=== PATIENT | female | born 1960 | race Caucasian/White ===

== ENCOUNTER 2022-07-07 09:46 | Emergency (ER) | payer BC, OTHER ==
--- OUTSIDE RECORDS SUMMARY | 2022-07-07 09:49 | XMS REPORT | Continuity of Care Document ---
:1960 Author Organization [facility] t Address [address] [place] [address]. [address] [place] [address] Care Team Providers Name Role Phone Simon Mcadams Admitting Clinician Unavailable Payers Payer Name Policy Type Policy Number Effective Date Expiration Date S ource Problems This patient has no known problems. Allergies, Adverse Reactions, Alerts Allergy Allergy Status Severity Reaction(s) Onset Inactive Treating Comm ents Source Name Type Date Date Clinician No Known DA Active U [facility] Allergie 04-27 [facility] 00:00: [address] No Known DA Active U 0 [facility] Allergie 04-27 [facility] 00:00: [address] Medications This patient has no known medications. Procedures This patient has no known procedures. Encounters Start End Encounter Admission Attending Care Care Encounter Source Date/Time Date/Time Type Type Clinicians Facility Department ID 2020-07-30 Inpatient [facility] ER [id number] [facility] 10:32:[address] [place] [address] Results Test Description Test Time Test Comments Results Result Comments Source BASIC METABOLIC PANEL 2020-07-31 06:03:00 Test Item Value Reference Range Interpretation Comme nts SODIUM (test code = NA) 142 MMOL/L 133-145 N POTASSIUM (test code = K) 4.1 MMOL/L 3.6-5.2 N CHLORIDE (test code = CL) 106 MMOL/L 100-108 N CARBON DIOXIDE (test code = 30 MMOL/L 22-32 N CO2) GLUCOSE (test code = GLU) 86 MG/DL 65-99 N Re sults of this assay method may be falsely depressed orelevated if p atient is taking sulfasalazine. BLOOD UREA NITROGEN (test code 11 MG/DL 6-20 N = BUN) GLOMERULAR FILTRATION RATE 67 45-104 N R eporting units: (test code = GFR) mL/min/1.7 3m\S\2 (Modified MDRD Formula) CREATININE (test code = CREAT) 0.86 MG/DL 0.60-1.00 N CALCIUM (test code = CA) 8.3 MG/DL 8.7-10.5 L [id number] 06:03:00 Test Item Value Reference Range Interpretation Comments MAGNESIUM (test code = MAG) 2.2 MG/DL 1.8-2.4 N CBC W/AUTO [id number] 05:53:00 Test Item Value Reference Range Interpretation Comments WHITE BLOOD CELL (test code = 5.65 x10 3/uL 4.80-10.80 N WBC) RED BLOOD CELL (test code = 3.92 x10 6/uL 4.2-5.4 L RBC) HEMOGLOBIN (test code = HGB) 11.6 G/DL 12.0-16.0 L HEMATOCRIT (test code = HCT) 35.5 % 37-47 L MEAN CELL VOLUME (test code = 90.6 FL 81-99 N MCV) MEAN CELL HGB (test code = MCH) 29.6 PG 27-31 N MEAN CELL HGB CONCENTRATION 32.7 G/DL 33-37 L (test code = MCHC) RED CELL DISTRIBUTION WIDTH 15.6 % 11.5-14.5 H (test code = RDW) PLATELET COUNT (test code = 173 x10 3/uL 150-450 N PLT) MEAN PLATELET VOLUME (test code 11.0 FL 7.4-10.4 H = MPV) NEUTROPHIL % (test code = NT%) 57.1 % 42-86 N IMMATURE GRANULOCYTE % (test 0.2 % 0.0-2.0 N code = IG%) LYMPHOCYTE % (test code = LY%) 32.0 % 24-44 N MONOCYTE % (test code = MO%) 7.4 % 0.0-4.0 H EOSINOPHIL % (test code = EO%) 2.8 % 0.0-2.7 H BASOPHIL % (test code = BA%) 0.5 % 0.0-0.5 N NUCLEATED RBC % (test code = 0.0 % 0.0-0.0 N NRBC%) NEUTROPHIL # (test code = NT#) 3.22 x10 3/uL 1.8-7.7 N IMMATURE GRANULOCYTE # (test 0.01 x10 3/uL 0.00-0.03 N code = IG#) LYMPHOCYTE # (test code = LY#) 1.81 x10 3/uL 1.0-4.8 N MONOCYTE # (test code = MO#) 0.42 x10 3/uL 0.0-0.8 N EOSINOPHIL # (test code = EO#) 0.16 x10 3/uL 0.0-0.5 N BASOPHIL # (test code = BA#) 0.03 x10 3/uL 0.0-0.2 N NUCLEATED RBC # (test code = 0.0 X10 3/uL 0.0-0.2 N NRBC#) LACTIC [id number] 15:26:00 Test Item Value Reference Range Interpretation Comments LACTIC ACID (test code = LACT) 1.7 MMOL/L 0.5-2.2 N LACTIC [id number] 12:18:00 Test Item Value Reference Range Interpretation Comments LACTIC ACID (test code = LACT) 3.7 MMOL/L 0.5-2.2 H UA RFLX MICROSCOPIC [id number] 11:49:00 Test Item Value Reference Range Interpretation Comments UA COLOR (test code = COLU) Yellow YELLOW UA APPEARANCE (test code = CLEAR CLEAR APPU) UA GLUCOSE DIPSTICK (test NORMAL mg/dL NEGATIVE code = DGLUU) UA BILIRUBIN DIPSTICK (test NEGATIVE NEGATIVE code = BILU) UA KETONE DIPSTICK (test NEGATIVE mg/dL NEGATIVE code = KETU) UA SPECIFIC GRAVITY (test 1.013 1.001-1.035 N code = SGU) UA BLOOD DIPSTICK (test code NEGATIVE NEGATIVE = RAFAEL) UA PH DIPSTICK (test code = 6.0 5.5-7.0 N GUICHO) UA PROTEIN DIPSTICK (test 20 mg/dL NEGATIVE code = PROU) UA UROBILINOGEN DIPSTICK NORMAL mg/dL NORMAL (test code = URO) UA NITRITE DIPSTICK (test NEGATIVE NEGATIVE code = JUDY) UA LEUKOCYTE ESTERASE NEGATIVE NEGATIVE DIPSTICK (test code = LEUU) UA COMMENT (test code = VOLUME 10-12 ML COMU) URINE SPECIMEN DESCRIPTION Clean Catch (test code = UASPEC) UA WBC (test code = WBCU) < 10 #/HPF 0-10 UA SQUAMOUS CELLS (test code 41 - 60 #/LPF <100 A = SQU) UA CULTURE NEEDED? (test Criteria not met code = UACULT) Indication for culture: RiskForSepsis-no oth srcURINE SOURCE: Clean CatchUA [id number] 11:49:00 Test Item Value Reference Range Interpretation Comments UA RBC (test code = RBCU) 0-2 #/HPF NONE SEEN UA HYALINE CAST (test code = 21-25 #/lpf HYALU) UA MUCUS (test code = MUCU) 2+ #/lpf NONE SEEN Indication for culture: RiskForSepsis-no oth srcURINE SOURCE: Clean CatchUA RFLX MICROSCOPIC [id number] 11:46:00 Test Item Value Reference Range Interpretation Comments UA COLOR (test code = COLU) Yellow YELLOW UA APPEARANCE (test code = CLEAR CLEAR APPU) UA GLUCOSE DIPSTICK (test NORMAL mg/dL NEGATIVE code = DGLUU) UA BILIRUBIN DIPSTICK (test NEGATIVE NEGATIVE code = BILU) UA KETONE DIPSTICK (test code NEGATIVE mg/dL NEGATIVE = KETU) UA SPECIFIC GRAVITY (test 1.013 1.001-1.035 N code = SGU) UA BLOOD DIPSTICK (test code NEGATIVE NEGATIVE = RAFAEL) UA PH DIPSTICK (test code = 6.0 5.5-7.0 N GUICHO) UA PROTEIN DIPSTICK (test 20 mg/dL NEGATIVE code = PROU) UA UROBILINOGEN DIPSTICK NORMAL mg/dL NORMAL (test code = URO) UA NITRITE DIPSTICK (test NEGATIVE NEGATIVE code = JUDY) UA LEUKOCYTE ESTERASE NEGATIVE NEGATIVE DIPSTICK (test code = LEUU) UA COMMENT (test code = COMU) VOLUME 10-12 ML URINE SPECIMEN DESCRIPTION Clean Catch (test code = UASPEC) UA WBC (test code = WBCU) #/hpf <10 UA SQUAMOUS CELLS (test code #/lpf <100 = SQU) UA CULTURE NEEDED? (test code = UACULT) Indication for culture: RiskForSepsis-no oth srcURINE SOURCE: Clean CatchUA [id number] 11:46:00 Test Item Value Reference Range Interpretation Comments UA RBC (test code = RBCU) #/HPF NONE SEEN Indication for culture: RiskForSepsis-no oth srcURINE SOURCE: Clean CatchUA RFLX MICROSCOPIC [id number] 11:46:00 Test Item Value Reference Range Interpretation Comments UA COLOR (test code = COLU) Yellow YELLOW UA APPEARANCE (test code = CLEAR CLEAR APPU) UA GLUCOSE DIPSTICK (test NORMAL mg/dL NEGATIVE code = DGLUU) UA BILIRUBIN DIPSTICK (test NEGATIVE NEGATIVE code = BILU) UA KETONE DIPSTICK (test code NEGATIVE mg/dL NEGATIVE = KETU) UA SPECIFIC GRAVITY (test 1.013 1.001-1.035 N code = SGU) UA BLOOD DIPSTICK (test code NEGATIVE NEGATIVE = RAFAEL) UA PH DIPSTICK (test code = 6.0 5.5-7.0 N GUICHO) UA PROTEIN DIPSTICK (test 20 mg/dL NEGATIVE code = PROU) UA UROBILINOGEN DIPSTICK NORMAL mg/dL NORMAL (test code = URO) UA NITRITE DIPSTICK (test NEGATIVE NEGATIVE code = JUDY) UA LEUKOCYTE ESTERASE NEGATIVE NEGATIVE DIPSTICK (test code = LEUU) UA COMMENT (test code = COMU) VOLUME 10-12 ML URINE SPECIMEN DESCRIPTION Clean Catch (test code = UASPEC) UA WBC (test code = WBCU) #/hpf <10 UA SQUAMOUS CELLS (test code #/lpf <100 = SQU) UA CULTURE NEEDED? (test code = UACULT) Indication for culture: RiskForSepsis-no oth srcURINE SOURCE: Clean CatchUA [id number] 11:46:00 Test Item Value Reference Range Interpretation Comments UA RBC (test code = RBCU) #/HPF NONE SEEN Indication for culture: RiskForSepsis-no oth srcURINE SOURCE: Clean CatchDRUG OF ABUSE SCREEN [id number] 11:41:00 Test Item Value Reference Interpretation Comments Range UR COCAINE (test NEGATIVE NEGATIVE code = COCAU) UR MDMA (test code = NEGATIVE NEGATIVE MDMAQLU) UR CANNABINOIDS NEGATIVE NEGATIVE (test code = CANU) UR AMPHETAMINE (test NEGATIVE NEGATIVE code = AMPHU) UR BARBITURATE QUAL NEGATIVE NEGATIVE (test code = BARBQLU) UR BENZODIAZEPINE NEGATIVE NEGATIVE (test code = BENZU) UR OPIATES QUAL NEGATIVE NEGATIVE (test code = OPIAQLU) UR PHENCYCLIDINE NEGATIVE NEGATIVE Urine Drug Abuse Screen (PCP) (test code = provides preliminary PHENCU) results thatmay be confirmed by thao loja methods (i.e., GC/MS) at [facility]. Results of scre en may not be usedin crimi nal justice, job performance or professionalcre dential review, or infa nt custody issues. Negativ e Stopover Level ng/ml ------- ----- Cocaine 300 Methamphetamine (Ecstacy) 500 Cannabinoid s (THC) 50 Amphetamine 100 0 Barbiturates 20 0 Benzodiazepines 200 Opiates 300 Phencyclidi ne (PCP) 25 BASIC METABOLIC [id number] 11:30:00 Test Item Value Reference Range Interpretation Comments SODIUM (test code = 141 MMOL/L 133-145 N NA) POTASSIUM (test code = 4.0 MMOL/L 3.6-5.2 N K) CHLORIDE (test code = 103 MMOL/L 100-108 N CL) CARBON DIOXIDE (test 26 MMOL/L 22-32 N code = CO2) GLUCOSE (test code = 134 MG/DL 65-99 H Results of this assay GLU) method may be f alsely depressed orele vated if patient is t aking sulfasalazine. BLOOD UREA NITROGEN 15 MG/DL 6-20 N (test code = BUN) GLOMERULAR FILTRATION 51 45-104 N Report ing units: RATE (test code = GFR) mL/mi n/1.73m\S\2 (Modified MDRD Formula) CREATININE (test code 1.09 MG/DL 0.60-1.00 H = CREAT) CALCIUM (test code = 9.1 MG/DL 8.7-10.5 N CA) HEPATIC FUNCTION [id number] 11:30:00 Test Item Value Reference Range Interpretation Comments TOTAL PROTEIN (test 6.6 G/DL 6.4-8.2 N code = PROT) ALBUMIN (test code = 3.6 G/DL 3.4-5.0 N ALB) GLOBULIN (test code = 3.0 G/DL 1.5-3.8 N GLOB) ALBUMIN/GLOBULIN RATIO 1.2 1.1-2.2 N (test code = A/G) BILIRUBIN TOTAL (test 0.2 MG/DL 0.0-1.0 N code = BILT) BILIRUBIN DIRECT (test 0.1 MG/DL 0.0-0.3 N code = BILD) BILIRUBIN INDIRECT 0.1 MG/DL 0.0-0.7 N (test code = BILIND) SGOT/AST (test code = 29 Units/L 15-37 N Result s of this assay AST) method may be f alsely depressed orele vated if patient is t aking sulfasalazine. SGPT/ALT (test code = 22 Units/L 30-65 L Result s of this assay ALT) method may be f alsely depressed orele vated if patient is t aking sulfasalazine. ALKALINE PHOSPHATASE 94 Units/L 50-136 N TOTAL (test code = ALKP) [id number] 11:30:00 Test Item Value Reference Range Interpretation Comments TROPONIN-I (test < 0.04 NG/ML 0.00-0.06 N - The use of serial code = TROPI) sampling and t esting protocol is a recommended pra ctice.- An elevated tro ponin level alone is often not sufficient for diagnosis of myocardial infarction.Resu lts of this assay meth od may be falsely depress ed orelevated if p atient is taking high dos es of Biotin. [id number] 11:30:00 Test Item Value Reference Range Interpretation Comments ACETAMINOPHEN (test < 1 MCG/ML 10-30 L Acetamin ophen is code = ACET) possibly toxic at levels of: 1. m ore than 150 MCG/ML 4 hours post jocelin stion. 2. more than 50 MCG/ML 12 hours post ingestion. [id number] 11:30:00 Test Item Value Reference Range Interpretation Comments SALICYLATE (test code = < 3 MG/DL 0-20 N Refe rence Range: KENDALL) Analgesic...... ...... ...... < 10 mg/ dl Therapeutic.... ...... ...... 15-20 mg /dl Mild Toxicity....... ...... . > 30 mg/dl Se alysa Toxicity....... ..... > 60 mg/dl [id number] 11:30:00 Test Item Value Reference Range Interpretation Comments ALCOHOL (test code = < 3 MG/DL 0-10 N 0 - 10 : Should be ALC) interpreted as NEGATIVE. 11 - 50: None t o mild euphoria. 51 - 100: Mild influence on vi radha and dark adaptation . > 80: Legal intoxicat ion; Depression of C NS; Increasing degr ee of poisoning. > 40 0: Fatalities repo rted. Results are for medical purposes only a nd not forlegal or emp loyment evaluative purp oses. [id number] 11:29:00 Test Item Value Reference Range Interpretation Comments AMMONIA (test code = < 10 UMOL/L 11-35 L VERIFIE D BY REPEATED AMM) ANALYSIS BY Renata Sommer 07/30/20Results of this assay meth od may be falsely depr essed orelevated if p atient is taking sulfasalazine. - XR CHEST 1 [id number] 11:20:00 [facility] 1960 Sex: F Patient Name: AYDE GRAFF Unit No: [id number] EXAMS: CPT CODE: [id number] XR CHEST 1 V 53893 Reason: altered mental status - XR CHEST 1 V 07/30/2020 10:36 AM Altered mental status A frontal portable chest compared with 04/20/2017 shows clear lungs and pleural spaces. The cardiac and mediastinal silhouettes are normal. The bones show post cervical fusion changes, post lumbar fusion changes and postsurgical fixation of the proximal right humerus. IMPRESSION: Negative chest for acute disease. at 1120 Reported and signed by: MD Mike CC: Mariaa Sanchez MD; Simon Mcadams MD Technologist: Reema Soto RT; Khurram Islas Trscrpt Dt/ (1120)[id number] Orig Print D/T: S: 07/30/2020 (7913) [facility] NAME: AYDE GRAFF [address] PHYS: [place] [address] : 1960 AGE: 60 SEX: F LOC: [facility] PHONE #: [phone] EXAM DATE: 07/30/2020 STATUS: REG ER FAX #: RAD NO: DC Dt: PAGE 1 Signed ReportLACTIC [id number] 11:18:00 Test Item Value Reference Range Interpretation Comments LACTIC ACID (test code = LACT) 3.7 MMOL/L 0.5-2.2 H - CT C-SPINE W/O [id number] 11:18:00 [facility] 1960 Sex: F Patient Name: AYDE GRAFF Unit No: [id number] EXAMS: CPT CODE: [id number] CT C-SPINE W/O CONT 47576 Reason: found down Indication: Found down, altered mental status TECHNIQUE: 2 mm imagesthrough the cervical spine with sagittal and coronal reformats FINDINGS: There is normal alignment. There is no prevertebral soft tissue swelling. Patient has undergone prior CT for through C7 ACDF. Facet articulations are intact with mild facet arthropathy. The dens is maintained. No fracture is identified. No paraspinous soft tissue abnormality is visible by unenhanced CT. IMPRESSION: Postoperativeand degenerative changes, no acute bony abnormality Electronically Signed by Joe Mir MD on07/30/2020 at 1118 Reported and signed by: Joe Mir MD CC: Mariaa Sanchez MD; Simon Mcadams MD Technologist: ANNETTA Alarcon Trscrpt Dt/ (1118)[email or web address] Orig Print D/T: S: 07/30/2020 (1122) CTDI: DLP: [facility] NAME: AYDE GRAFF [address] [facility] PHYS: Maria[place] [address] : 1960 AGE: 60 SEX: F LOC: [facility] PHONE #: [phone] EXAM DATE: 07/30/2020 STATUS: REG ER FAX #: RAD NO: DC Dt: PAGE 1 Signed Report- CT HEAD/BRAIN W/O [id number] 11:11:00 [facility] 1960 Sex: F Patient Name: AYDE GRAFF Unit No: [id number] EXAMS: CPT CODE: [id number] CT HEAD/BRAINW/O CONT 65380 Reason: altered mental status Indication: Altered mental status TECHNIQUE: Contiguous5 mm images were obtained through brain. No contrast was given. FINDINGS: The ventricles are normal in size and configuration. There is no intracranial hemorrhage, mass effect or abnormal extra-axial fluid collection. There are no focal attenuation abnormalities within the brain parenchyma. Bone targeted windows are unremarkable. IMPRESSION: Negative at 1111 Reported and signed by: Joe Mir MD CC: Mariaa Sanchez MD; Simon Mcadams MD Technologist: Ijeoma Zuluaga, CT Trscrpt Dt/ (1111)[email or web address] Orig Print D/T: S: 07/30/2020 (1115) CTDI: DLP: [facility] NAME: AYDE GRAFF [address] PHYS: [place] [address] : 1960 AGE: 60 SEX: F LOC: [facility] PHONE #: [phone] EXAM DATE: 07/30/2020 STATUS: REG ER FAX #: RAD NO: DC Dt: PAGE 1 Signed ReportPROTHROMBIN [id number] 10:56:00 Test Item Value Reference Range Interpretation Comments PROTHROMBIN TIME 9.8 SECONDS 9.6-12.3 N PATIENT (test code = PTP) INTERNATIONAL NORMAL 0.87 Recomme nded INR range RATIO (test code = (warfarin therapy): INR) 2.0 - 3.0INR (International Normalized Rati o) should beused w hen interpreting or al anticoaglulant therapy. For at rial fibrillation an d treatment orprevention of deep vein thrombosis . Patients with Palmaz-Cayden s tent *: 2.0 - 3.0 Patients with mechanical hear t valve *: 2.5 - 3.5 Patients with flex-stent *: 3 .0 - 4.0(*) = outside plant field engineer's suggested range Is patient on anticoagulants? UnknownTHROMBOPLASTIN TIME [id number] 10:56:00 Test Item Value Reference Range Interpretation Comments THROMBOPLASTIN TIME 23.3 SECONDS 22.5-35.3 N *Therap eutic level PARTIAL (test code = for hep johana: 1.5 - PTT) 2.5 times the average patient value of 30.0 seconds. The aP TT tet should not be used to evaluat e low moleculat weigh t heparin anticoagulant therapy. Is patient on anticoagulants? [facility] [id number] 10:49:00 Test Item Value Reference Range Interpretation Comments WHITE BLOOD CELL (test code = 11.22 x10 3/uL 4.80-10.80 H WBC) RED BLOOD CELL (test code = 4.28 x10 6/uL 4.2-5.4 N RBC) HEMOGLOBIN (test code = HGB) 12.3 G/DL 12.0-16.0 N HEMATOCRIT (test code = HCT) 37.6 % 37-47 N MEAN CELL VOLUME (test code = 87.9 FL 81-99 N MCV) MEAN CELL HGB (test code = 28.7 PG 27-31 N MCH) MEAN CELL HGB CONCENTRATION 32.7 G/DL 33-37 L (test code = MCHC) RED CELL DISTRIBUTION WIDTH 15.0 % 11.5-14.5 H (test code = RDW) PLATELET COUNT (test code = 210 x10 3/uL 150-450 N PLT) MEAN PLATELET VOLUME (test 10.3 FL 7.4-10.4 N code = MPV) NEUTROPHIL % (test code = NT%) 78.0 % 42-86 N IMMATURE GRANULOCYTE % (test 0.5 % 0.0-2.0 N code = IG%) LYMPHOCYTE % (test code = LY%) 13.4 % 24-44 L MONOCYTE % (test code = MO%) 5.7 % 0.0-4.0 H EOSINOPHIL % (test code = EO%) 2.0 % 0.0-2.7 N BASOPHIL % (test code = BA%) 0.4 % 0.0-0.5 N NUCLEATED RBC % (test code = 0.0 % 0.0-0.0 N NRBC%) NEUTROPHIL # (test code = NT#) 8.75 x10 3/uL 1.8-7.7 H IMMATURE GRANULOCYTE # (test 0.06 x10 3/uL 0.00-0.03 H code = IG#) LYMPHOCYTE # (test code = LY#) 1.50 x10 3/uL 1.0-4.8 N MONOCYTE # (test code = MO#) 0.64 x10 3/uL 0.0-0.8 N EOSINOPHIL # (test code = EO#) 0.23 x10 3/uL 0.0-0.5 N BASOPHIL # (test code = BA#) 0.04 x10 3/uL 0.0-0.2 N NUCLEATED RBC # (test code = 0.0 X10 3/uL 0.0-0.2 N NRBC#)
[2022-07-07] MEDS ORDERED: MORPHINE 4 MG/ML SYR ONE (10:13)
[2022-07-07] MEDS ORDERED: ONDANSETRON 4 MG/2 ML VIAL ONE (10:14)
[2022-07-07] MEDS ORDERED: NA CHLORIDE 0.9% 1,000 ML ONE (10:14)
[2022-07-07] MEDS ORDERED: FAMOTIDINE 20 MG/2 ML VIAL IV ONE (10:14)
[2022-07-07 10:16] LABS: Urine Blood Negative (Negative); Urine Glucose Negative (Negative); Urine Protein 2+ (Negative); Urine Specific Gravity >=1.030 (1.005-1.030)
[2022-07-07 10:21] LABS: Urine Bacteria <20 /HPF (<20); Urine Mucus 4+ /HPF (None Seen)
[2022-07-07 10:34] LABS: Absolute Lymphocytes (CBC) 0.9 K/uL (0.7-4.9); Hematocrit 48.6 % (36.0-45.0); Lymphocytes % 13.4 % (15.3-44.8); MCV 90.1 fL (80-100); MPV 7.9 fL (7.6-11.3)
[2022-07-07 11:06] LABS: SARS-COV-2 RT PCR NEGATIVE (NEGATIVE)
[2022-07-07] MEDS ORDERED: PROMETHAZINE INJ 25 MG/ML AMP ONE (11:51)
[2022-07-07] MEDS ORDERED: DICYCLOMINE HCL 20 MG/2 ML AMP IM ONE (11:51)
[2022-07-07 12:30] LABS: Albumin 3.2 g/dL (3.4-5.0); Bilirubin Total 0.5 mg/dL (0.2-1.0); Potassium 3.6 mEq/L (3.5-5.1); Protein, Total 6.2 g/dL (6.4-8.2)
[2022-07-07] MEDS ORDERED: KETOROLAC 30 MG/ML INJ ONE (12:48)
[2022-07-07] MEDS ORDERED: FENTANYL CITR 100 MCG/2 ML ONE ×2 (13:33→17:46)
--- NOTE | 2022-07-07 13:36 | RAD REPORT ---
EXAM DESCRIPTION: CTAbdomen Pelvis W Contrast - 07/07/2022 1:09 pm CLINICAL HISTORY: Abdominal pain. ABD PAIN COMPARISON: No comparisons TECHNIQUE: Biphasic CT imaging of the abdomen and pelvis was performed with 100 ml non-ionic IV cont rast. All CT scans are performed using dose optimization technique as appropriate and may include automated exposure control or mA/KV adjustment according to patient size. FINDINGS: The lung bases are clear.Bilateral breast implants noted. Moderate intrahepatic and common bile duct dilatation is seen. Pancreatic duct is also dilated. Gallb ladder is absent. 12 mm soft tissue rounded lesion is seen near the ampulla. Pancreatic parenchyma ap pears within normal limits. The spleen, adrenal glands and kidneys are within normal limits. Benign l eft renal cyst. . No bowel obstruction, free air, free fluid or abscess. Moderate stool throughout the colon. Nonvisual ized appendix. No evidence of significant lymphadenopathy. Postoperative changes with hardware in place lumbar spine. IMPRESSION: Moderate intrahepatic biliary tree dilatation with pancreatic duct dilatation also noted . Cholecystectomy. 12 mm soft tissue structure up to the level of the ampulla could be a mass. This could contribute to the degree of biliary dilatation present. Direct visualization of the ampulla region with ERCP would be advised.
--- NOTE | 2022-07-07 13:51 | ER ---
[facility] Name: Kim Winters Age: 62 yrs Sex: Female : 1960 Arrival Date: 07/07/2022 Time: 09:52 Bed 13 Private MD: Diagnosis: Pancreatic mass Presentation: 07/07 09:52 Chief complaint: N/V/D and diffuse abdominal pain x 3 days. Not tolerating fluids. hb Coronavirus screen: Client presents with at least one sign or symptom that may indicate coronavirus-19. Standard/surgical mask placed on the client. Provider contacted for isolation considerations. Ebola Screen: No symptoms or risks identified at this time. Risk Assessment: Do you want to hurt yourself or someone else? Patient reports no desire to harm self or others. Onset of symptoms was July 04, 2022. 09:52 Method Of Arrival: Wheelchair hb 09:52 Acuity: KEN 3 hb 09:53 Initial Sepsis Screen: Does the patient meet any 2 criteria? No. Patient's initial hb sepsis screen is negative. Does the patient have a suspected source of infection? No. Patient's initial sepsis screen is negative. Triage Assessment: 12:02 General: Appears in no apparent distress. uncomfortable, Behavior is calm, cooperative, eh3 appropriate for age. Historical: - Allergies: 09:53 No Known Allergies; hb - PSHx: 09:53 Back x 3; Neck; Shoulder - R; hb - Immunization history:: Adult Immunizations up to date, Client reports receiving the 2nd dose of the Covid vaccine. - Social history:: Smoking status: Patient denies any tobacco usage or history of. Screenin:25 [facility] ED Fall Risk Assessment (Adult) Score/Fall Risk Level 0 - 2 = Low Risk hb Oriented to surroundings, Maintained a safe environment, Educated pt \T\ family on fall prevention, incl call for assistance when getting out of bed. Abuse screen: Denies threats or abuse. Denies injuries from another. Nutritional screening: No deficits noted. Tuberculosis screening: No symptoms or risk factors identified. Assessment: 10:25 General: Appears in no apparent distress. ill, Behavior is calm, cooperative. Pain: hb Pain currently is 10 out of 10 on a pain scale. Neuro: Level of Consciousness is awake, alert, obeys commands, Oriented to person, place, time, situation. Cardiovascular: Patient's skin is warm and dry. Respiratory: Respiratory effort is even, unlabored, Respiratory pattern is regular, symmetrical. GI: Reports lower abdominal pain, upper abdominal pain, cramping, diarrhea, nausea, vomiting. : No signs and/or symptoms were reported regarding the genitourinary system. EENT: No signs and/or symptoms were reported regarding the EENT system. Derm: Skin is pink, warm \T\ dry. Musculoskeletal: No signs and/or symptoms reported regarding the musculoskeletal system. 11:21 Reassessment: phlebotomy paged for second recollect. Vital Signs: 09:52 BP 135 / 83; Pulse 71; Resp 18; Temp 97.3(TE); Pulse Ox 100% on R/A; Weight 51.71 kg; hb Height 5 ft. 2 in. ; Pain 10/10; 11:27 BP 92 / 58; Pulse 58; Resp 18 S; Pulse Ox 95% on R/A; kc6 13:34 Pain 7/10; eh3 09:52 Body Mass Index 20.85 (51.71 kg, 157.48 cm) hb 09:52 Pain Scale: Adult hb 13:34 Pain Scale: Adult eh3 ED Course: 09:52 Patient arrived in ED. hb 09:53 Triage completed. hb 09:54 An Alarcon FNP is PSYCHIATRICP. jh7 09:54 Leandro Joel MD is Attending Physician. jh7 09:54 Arm band placed on. hb 10:20 Patient has correct armband on for positive identification. Placed in gown. Bed in low mm9 position. Call light in reach. Side rails up X2. Warm blanket given. Pulse ox on. NIBP on. 10:20 Urine collected: clean catch specimen, tea colored, COVID swab sent to lab. Flu and/or mm9 RSV swab sent to lab. 10:21 COVID-19/FLU A+B Sent. mm9 10:21 Urine Microscopic Only Sent. mm9 10:23 Inserted saline lock: 22 gauge in left antecubital area, using aseptic technique. Blood hb collected. 10:25 CBC with Diff Sent. hb 10:25 Lipase Sent. hb 10:26 CT Abd/Pelvis - IV Contrast Only Sent. mm9 10:52 Lab(s) recollected, by me, sent to lab. tm3 12:02 Altagracia Haider, RN is Primary Nurse. 3 13:11 CT Abd/Pelvis - IV Contrast Only In Process Unspecified. EDMS Administered Medications: 10:25 Drug: NS 0.9% IV 1000 ml Route: IV; Rate: 1 bolus; Site: left antecubital; hb 11:26 Follow up: Response: No adverse reaction; IV Status: Completed infusion; IV Intake: kc6 1000ml 10:25 Drug: Famotidine IVP 20 mg Route: IVP; Site: left antecubital; hb 11:26 Follow up: Response: No adverse reaction kc6 10:25 Drug: Ondansetron IVP 4 mg Route: IVP; Site: left antecubital; hb 11:26 Follow up: Response: No adverse reaction kc6 10:25 Drug: morphine IVP or IV 4 mg Route: IVP; Infused Over: 4 mins; Site: left antecubital; hb 11:26 Follow up: Response: No adverse reaction; Pain is unchanged, physician notified; RASS: kc6 Alert and Calm (0) 11:52 Drug: Dicyclomine IM 20 mg Route: IM; Site: left deltoid; hb 11:52 Drug: Promethazine IVP 12.5 mg Route: IVP; Site: left antecubital; hb 13:34 Drug: fentaNYL (PF) IVP 25 mcg Route: IVP; Site: left antecubital; 3 13:34 Follow up: Pain 7/10 Adult 3 13:34 Not Given (Patient Refused): Ketorolac IVP 15 mg IVP once 3 Medication: 10:25 VIS not applicable for this client. hb Intake: 11:26 IV: 1000ml; Total: 1000ml. kc6 Outcome: 13:50 ER care complete, transfer ordered by MD. pérez Signatures: Dispatcher [employer] EDMS Nilay Figueroa 3 Lois Salas RN RN ss Baxter, Heather, RN RN Altagracia Haider, LORETO DANGELO 3 An Alarcon, ROLLER HELPER ROLLER HELPER 7 Marquita Brumfield RN RN [email or web address] Kalina Etienne mm9 Corrections: (The following items were deleted from the chart) 09:55 09:52 Chief complaint: N/V/D and abdominal pain x 3 days. Not tolerating fluids. hb hb 10:26 10:25 COMPREHENSIVE METABOLIC PANEL+C.LAB.BRZ drawn and sent. hb EDMS
--- NOTE | 2022-07-07 13:51 | EDPHYS ---
Physician Documentation [facility] Name: Kim Winters Age: 62 yrs Sex: Female : 1960 Arrival Date: 07/07/2022 Time: 09:52 Bed 13 Private MD: ED Physician Leandro Joel HPI: 07/07 09:50 This 62 yrs old Female presents to ER via Wheelchair with complaints of Abdominal Pain, jh7 Nausea/Vomiting/Diarrhea. 09:50 The patient presents with abdominal pain that is diffuse. Onset: The symptoms/episode jh7 began/occurred 3 day(s) ago. Associated signs and symptoms: Pertinent positives: nausea, vomiting, and diarrhea, Pertinent negatives: blood in stools, dysuria, fever, shortness of breath, vomiting blood. The symptoms are described as constant, crampy, sharp. Historical: - Allergies: 09:53 No Known Allergies; hb - PSHx: 09:53 Back x 3; Neck; Shoulder - R; hb - Immunization history:: Adult Immunizations up to date, Client reports receiving the 2nd dose of the Covid vaccine. - Social history:: Smoking status: Patient denies any tobacco usage or history of. ROS: 09:50 Constitutional: Negative for fever, chills, and weight loss, Eyes: Negative for injury, jh7 pain, redness, and discharge, ENT: Negative for injury, pain, and discharge, Neck: Negative for injury, pain, and swelling, Cardiovascular: Negative for chest pain, palpitations, and edema, Respiratory: Negative for shortness of breath, cough, wheezing, and pleuritic chest pain, Back: Negative for injury and pain, MS/Extremity: Negative for injury and deformity, Skin: Negative for injury, rash, and discoloration, Neuro: Negative for headache, weakness, numbness, tingling, and seizure. 09:50 Abdomen/GI: Positive for abdominal pain, nausea, vomiting, and diarrhea, abdominal cramps, Negative for rectal bleeding. 09:50 All other systems are negative. Exam: 09:50 Head/Face: Normocephalic, atraumatic. Eyes: Pupils equal round and reactive to light, jh7 extra-ocular motions intact. Lids and lashes normal. Conjunctiva and sclera are non-icteric and not injected. Cornea within normal limits. Periorbital areas with no swelling, redness, or edema. ENT: Nares patent. No nasal discharge, no septal abnormalities noted. Tympanic membranes are normal and external auditory canals are clear. Oropharynx with no redness, swelling, or masses, exudates, or evidence of obstruction, uvula midline. Mucous membranes moist. Neck: Trachea midline, no thyromegaly or masses palpated, and no cervical lymphadenopathy. Supple, full range of motion without nuchal rigidity, or vertebral point tenderness. No Meningismus. Cardiovascular: Regular rate and rhythm with a normal S1 and S2. No gallops, murmurs, or rubs. Normal PMI, no JVD. No pulse deficits. Respiratory: Lungs have equal breath sounds bilaterally, clear to auscultation and percussion. No rales, rhonchi or wheezes noted. No increased work of breathing, no retractions or nasal flaring. Back: No spinal tenderness. No costovertebral tenderness. Full range of motion. Skin: Warm, dry with normal turgor. Normal color with no rashes, no lesions, and no evidence of cellulitis. MS/ Extremity: Pulses equal, no cyanosis. Neurovascular intact. Full, normal range of motion. Neuro: Awake and alert, GCS 15, oriented to person, place, time, and situation. Motor strength 5/5 in all extremities. Sensory grossly intact. Cerebellar exam normal. Normal gait. 09:50 Constitutional: The patient appears alert, awake, in obvious pain. 09:50 Abdomen/GI: Inspection: abdomen appears normal, Bowel sounds: normal, Palpation: soft, mild abdominal tenderness, in all quadrants. Vital Signs: 09:52 BP 135 / 83; Pulse 71; Resp 18; Temp 97.3(TE); Pulse Ox 100% on R/A; Weight 51.71 kg; hb Height 5 ft. 2 in. ; Pain 10/10; 11:27 BP 92 / 58; Pulse 58; Resp 18 S; Pulse Ox 95% on R/A; kc6 13:34 Pain 7/10; eh3 09:52 Body Mass Index 20.85 (51.71 kg, 157.48 cm) hb 09:52 Pain Scale: Adult hb 13:34 Pain Scale: Adult eh3 MDM: 09:54 Patient medically screened. [facility] 07/07 09:57 Order name: CBC with Diff; Complete Time: 10:54 [facility] 07/07 09:57 Order name: Urine Microscopic Only; Complete Time: 10:32 [facility] 07/07 09:57 Order name: IV Saline Lock; Complete Time: 10:25 [facility] 07/07 09:57 Order name: Labs collected and sent; Complete Time: 10:25 [facility] 07/07 09:57 Order name: Urine Dipstick-Ancillary (obtain specimen); Complete Time: 10:21 [facility] 07/07 10:08 Order name: COVID-19/FLU A+B; Complete Time: 11:08 [facility] 07/07 10:16 Order name: Urine Dipstick-Ancillary; Complete Time: 10:32 EDMS 07/07 10:40 Order name: Labs - recollect needed: green top only; Complete Time: 10:58 07/07 11:10 Order name: Labs - recollect needed: green top. PHLEB paged 07/07 09:57 Order name: CMP; Complete Time: 12:33 [facility] 07/07 09:57 Order name: Lipase; Complete Time: 12:33 [facility] 07/07 09:57 Order name: CT Abd/Pelvis - IV Contrast Only; Complete Time: 13:40 [facility] 07/07 13:41 Order name: US Abdomen Limited: RUQ, CBD dilated [facility] Administered Medications: 10:25 Drug: NS 0.9% IV 1000 ml Route: IV; Rate: 1 bolus; Site: left antecubital; hb 11:26 Follow up: Response: No adverse reaction; IV Status: Completed infusion; IV Intake: kc6 1000ml 10:25 Drug: Famotidine IVP 20 mg Route: IVP; Site: left antecubital; hb 11:26 Follow up: Response: No adverse reaction kc6 10:25 Drug: Ondansetron IVP 4 mg Route: IVP; Site: left antecubital; hb 11:26 Follow up: Response: No adverse reaction kc6 10:25 Drug: morphine IVP or IV 4 mg Route: IVP; Infused Over: 4 mins; Site: left antecubital; hb 11:26 Follow up: Response: No adverse reaction; Pain is unchanged, physician notified; RASS: kc6 Alert and Calm (0) 11:52 Drug: Dicyclomine IM 20 mg Route: IM; Site: left deltoid; hb 11:52 Drug: Promethazine IVP 12.5 mg Route: IVP; Site: left antecubital; hb 13:34 Drug: fentaNYL (PF) IVP 25 mcg Route: IVP; Site: left antecubital; eh3 13:34 Follow up: Pain 10/30 Adult eh3 13:34 Not Given (Patient Refused): Ketorolac IVP 15 mg IVP once eh3 Disposition Summary: 07/07/22 13:50 Transfer Ordered Accepting Physician: Accepting MD at [place] [id number] Transfer Location: [place] [id number] Reason: Higher level of care [facility] Condition: Fair [facility] Problem: new [facility] Symptoms: are unchanged [facility] Diagnosis - Pancreatic mass [facility] Forms: - Medication Reconciliation Form [facility] - SBAR form [facility] Signatures: Dispatcher [employer] EDMS Lois Salas RN RN Ailyn Reese RN RN Altagracia Haider RN RN 3 An Alarcon, [place] [address] Marquita Brumfield RN kc6 Corrections: (The following items were deleted from the chart) 10:26 09:57 COMPREHENSIVE METABOLIC PANEL+C.LAB.BRZ ordered. EDMS EDMS
[2022-07-07] MEDS ORDERED: NA CHLORIDE 0.9% 500 ML ONE (14:01)
--- NOTE | 2022-07-07 14:27 | RAD REPORT ---
EXAM DESCRIPTION: US - Abdomen Exam Limited - 07/07/2022 2:15 pm CLINICAL HISTORY: ABD PAIN COMPARISON: <Comparisons> FINDINGS: There is significant biliary dilatation seen in the liver. Common bile duct also dilated t o 1 cm. Pancreatic duct dilatation also present, significant. IMPRESSION: Significant intrahepatic and extrahepatic biliary tree dilatation. Pancreatic duct dila tation also present. Although not visualized, potential causes for this would include a pancreatic head mass or mass in th e region of the ampulla.
[2022-07-07 21:09] VITALS: TEMP 97.3
[2022-07-07 21:18] VITALS: BP 103/65; O2SAT 100
[2022-07-08] MEDS ORDERED: NA CHLORIDE 0.9% 500 ML ONE (11:18)
[2022-07-08] MEDS ORDERED: ACETAMINOPHEN 500 MG TAB ONE (11:18)
== END 2022-07-07 17:47 | disposition short-term general hospital (02) ==
LOC: ER 09:46
DX: K86.89 Other specified diseases of pancreas (principal); Z20.822 Contact with and (suspected) exposure to COVID-19
CPT/HCPCS: 96361; 85025; 36415; 83690; 80053; 0240U; 74177; 76705; 96375; 96372; 96374; 99285; Q9967; J2550; J0500; J3010 ×2; J2405; J7040; J7030; 81003; 81015

== ENCOUNTER 2022-07-12 14:07 | Emergency (ER) | payer BC, OTHER ==
--- OUTSIDE RECORDS SUMMARY | 2022-07-12 14:10 | XMS REPORT | Continuity of Care Document ---
:1960 Author Organization [facility] t Address [address] [facility]. [address] [place] [address] Care Team Providers Name Role Phone Lyle Ware MD Attending Clinician Toni LEI, Geraldine Mendes Attending Clinician [place] LEI, Armando Parisi Attending Clinician [phone] GERALDINE MUÑOZ Attending Clinician Unavailable LYLE WARE Attending Clinician Unavailable Gerry Pinzon Attending Clinician Joaquín Ramírez MD Attending Clinician GERRY PINZON Attending Clinician Unavailable Simon Mcadams Admitting Clinician Unavailable ARMANDO DIOP Admitting Clinician Unavailable Payers Payer Name Policy Type Policy Number Effective Date Expiration Date S jessica GENERIC PPO - [id number] 2022 00:00:00 GENERIC PAYOR OUT OF STATE BCBS [id number] - PPO - BCBS Problems Condition Condition Condition Status Onset Resolution Last Treating Co mments Source Name Details Category Date Date Treatment Clinician Date Acute Acute Disease Active [facility] abdominal abdominal 3-17 [facility] pain pain 00:00: Medical [address] [place] [address] Biliary Biliary Disease Active [facility] obstructio obstructio 3-17 Brigitte kes n n 00:00: Medical 00 [place] Restless Restless Disease Active [facility] leg leg [facility]17 [facility] syndrome syndrome 00:00: Medica l 00 Center Chronic Chronic Disease Active [facility] back pain back pain 3-17 Luke s 00:00: Medical 00 [place] Chronic Chronic Disease Active [facility] insomnia insomnia 3-17 [facility] 00:00: Medical 00 [place] Ampulla of Ampulla of Disease Active [facility] Vater mass Vater mass 3-17 Brigitte kes 00:00: Medical 00 Center Allergies, Adverse Reactions, Alerts Allergy Allergy Status Severity Reaction(s) Onset Inactive Treating Comm ents Source Name Type Date Date Clinician No Known DA Active [facility]ie 05 [facility] s 00:00: Isamar 00 [facility] Center No Known DA Active [facility] Allergie 05 Corpus s 00:00: Isamar [facility] NO KNOWN Allergy Active [facility] Social History Social Habit Start Date Stop Date Quantity Comments Source Sex Assigned At [address] Brigitte kes 00:00:00 00:00:00 Medical Center Medications Ordered Filled Start Stop Current Ordering Indication Dosage Frequency Signature Comments Components Source Medication Medication Date Date Medication? Clinician (SIG) Name Name pregabalin Yes 250mg Q.5D Take [address] (LYRICA) 3-20 mg by [facility] 200 MG 17:46: mouth 2 Medical capsule 59 (two) Center times daily. rOPINIRole Yes .5mg Q.[id number] Take 0.[address] (REQUIP) 3-20 [id number] mg by Luke s 0.5 MG 17:46: 3D mouth 3 Medical tablet 59 (three) Center times daily. temazepam Yes 30mg Take [address] (RESTORIL) 3-20 by mouth [facility] 30 mg 17:46: every Medical capsule 59 night as Center needed for Sleep. HYDROcodone 0 2022- Yes 1{tbl} Take [address] -acetaminop 3-20 03-30 tablet by Brigitte villafanas hen (NORCO 00:00: 23:59 mouth Medic al 5-325) 00 :00 every 6 Center 5-325 mg (six) per tablet hours as needed for Pain for up to 10 days Can take 2 at a time if pain severe. Max Daily Amount: 4 tablets ondansetron 2022- Yes 4mg Take 1 [facility] (ZOFRAN-ODT 07-10 tablet (4 Brigitte kes ) 4 MG 00:00: 23:59 mg total) Medic al disintegrat 00 :00 by mouth Cent er ing tablet every 8 (eight) hours as needed for Nausea for up to 7 days. Vital Signs Vital Name Observation Time Observation Value Comments Source HEIGHT 2022-07-07 19:53:00 157.5 cm WEIGHT 2022-07-07 19:53:00 51.71 kg HEIGHT 2022-07-07 19:53:00 157.5 cm WEIGHT 2022-07-07 19:53:00 51.71 kg HEIGHT 2022-07-07 19:53:00 157.5 cm WEIGHT 2022-07-07 19:53:00 51.71 kg Heart rate 2022-07-10 15:47:51 50 /min [facility] Respiratory rate 2022-07-10 15:47:51 18 /min [facility] Oxygen saturation in 2022-07-10 15:47:51 95 /min [facility] Arterial blood by Medical Ce nter Pulse oximetry Body temperature 2022-07-10 15:47:15 36.67 Lula [facility] Systolic blood 2022-07-10 15:47:00 125 mm[Hg] [facility] Diastolic blood 2022-07-10 15:47:00 71 mm[Hg] [facility] Body height 2022-07-07 19:53:00 157.5 cm [facility] Body weight 2022-07-07 19:53:00 51.71 kg [facility] BMI 2022-07-07 19:53:00 20.85 kg/m2 [facility] Procedures Procedure Date / Time Performing Clinician Source Performed REPORT OF PROCEDURE - 2022-07-10 17:15:17 Gerry Pinzon [facility] ENDOSCOPY [facility] REPORT OF PROCEDURE - 2022-07-10 17:11:53 [facility] [place] ERCP 2022-07-10 10:45:00 Lissette, [facility] CYTOLOGY 2022-07-10 10:44:00 Lissette, [facility] CYTOLOGY REQUEST 2022-07-10 10:44:00 Lissette, [facility] TISSUE EXAM 2022-07-10 10:07:00 Lissette, [facility] ERCP, WITH BALLOON SWEEP 2022-07-10 09:59:00 Lissette, [facility] OF BILE DUCTS [facility] ESOPHAGOGASTRODUODENOSCOPY 2022-07-10 09:59:00 Lissette, [facility] , WITH ENDOSCOPIC US Medical Angelique ter ENDOSCOPY, UPPER GI TRACT, 2022-07-10 09:59:00 Lissette, [facility] WITH BIOPSY [facility] Center ERCP, WITH SPHINCTEROTOMY 2022-07-10 09:59:00 Lissette, [facility] PROCEDURE W/ C-ARM 2022-07-10 09:59:00 Lissette, [facility] COMPREHENSIVE METABOLIC 2022-07-10 04:41:00 Geraldine Muñoz [facility] BASIC METABOLIC PANEL 2022-07-08 05:14:00 Georgia, [facility] HEPATIC FUNCTION PANEL 2022-07-08 05:14:00 [place], Armando [facility] CBC W/PLT COUNT & AUTO 2022-07-08 05:14:00 [place], [facility] DIFFERENTIAL [facility] CBC W/PLT COUNT & AUTO 2022-07-08 05:14:00 [place], [facility] DIFFERENTIAL [facility] Plan of Care Planned Activity Planned Date Details Comments Source Future Scheduled 2022-04-23 DEPRESSION SCREENING [facility] Test 00:00:00 (12+) [code = Medical Center DEPRESSION SCREENING (12+)] Future Scheduled 2021-12-22 INFLUENZA VACCINE (#1) [facility] Test 00:00:00 [code = INFLUENZA Medical Ce nter VACCINE (#1)] Future Scheduled 2010 SHINGLES VACCINES ([address] [facility] Test 00:00:00 2) [code = SHINGLES Medical Center VACCINES (1 of 2)] Future Scheduled 2005 Lipid panel (procedure) [facility] Test 00:00:00 [code = 18731439] Medical Ce nter Future Scheduled 1981 Screening for malignant [facility] Test 00:00:00 neoplasm of cervix Medical C enter (procedure) [code = 814032761] Future Scheduled 1979 DTAP/TDAP/TD VACCINES [facility] Test 00:00:00 (1 - Tdap) [code = Medical C enter DTAP/TDAP/TD VACCINES (1 - Tdap)] Future Scheduled 1978 HEPATITIS C SCREENING [facility] Test 00:00:00 [code = HEPATITIS C Medical Center SCREENING] Future Scheduled [address] [facility] Test 00:00:00 Counseling and Medical Cente r Screening (12+) [code = Tobacco Cessation Counseling and Screening (12+)] Future Scheduled 1960 COVID-19 VACCINE (#1) [facility] Test 00:00:00 [code = COVID-[address] VACCINE (#1)] Future Scheduled 1960 Screening for malignant [facility] Test 00:00:00 neoplasm of breast Medical C enter (procedure) [code = 291742458] Future Scheduled 1960 CT Colonography (combo) [facility] Test 00:00:00 [code = CT Colonography [facility] (combo)] Future Scheduled 1960 Screening for malignant [facility] Test 00:00:00 neoplasm of colon Medical Ce nter (procedure) [code = 141243716] Future Scheduled 1960 Screening for malignant [facility] Test 00:00:00 neoplasm of colon Medical Ce nter (procedure) [code = 646286925] Future Scheduled 1960 Screening for malignant [facility] Test 00:00:00 neoplasm of colon Medical Ce nter (procedure) [code = 549924766] Future Scheduled 1960 Screening for malignant [facility] Test 00:00:00 neoplasm of colon Medical Ce nter (procedure) [code = 320094585] Future Scheduled 1960 Sigmoidoscopy [code = [facility] Test 00:00:00 Sigmoidoscopy] Medical Cente r Encounters Start End Encounter Admission Attending Care Care Encounter Source Date/Time Date/Time Type Type Clinicians Facility Department ID 2020-07-30 Inpatient [facility] ER [id number] [facility] 10:32:00 04 [facility] 2022-07-07 2022-07-[facility] [address] [address] [id number] 18:52:00 17:40:00 [facility] 2022-07-07 2022-07-10 Inpatient ER TONI, TABITHA Gastro [id number] [facility] 18:52:00 17:40:00 GERALDINE 2022-07-10 2022-07-10 Surgery Lissette, [facility] [id number] 11:15:00 12:45:[address] [facility] 2022-07-10 2022-07-10 Anesthesia Desiree, [facility] [id number] 09:58:00 11:05:00 Event Joaquín Cheema [facility] 2022-07-10 2022-07-10 Outpatient AMARIS PINZON [facility] [id number] [facility] 07:55:10 07:55:10 GERRY Luu e of Medicin e 2022-07-10 2022-07-10 Outpatient AMARIS PINZON [facility] [id number] [facility] 07:54:58 07:54:58 GERRY Luu e of Medicin e Results Test Description Test Time Test Comments Results Result Comments Source Cytology 2022-07-12 13:50:38 Test Item Value Reference Range Interpretation Comme nts Case Report (test code = 104) Medical Cytology Report Case: [id number] Authorizing Provider: Gerry Pinzon Collected: 07/10/2022 10:44 AM Ordering Location: [address] Received: 07/11/2022 08:29 AM Service Pathologist: Karl Smallwood MD Specimen: Common Bile Duct, distal (lower third of the main duct) DIAGNOSIS (test code = 3220) d6yzeCIjWALbk9vvOJWztPJsXkWqFpUvIpOyBx p rdCDbOIchhrCgJLyizFfbQJUgZHYwSA1dxWmgsY g6mDsxIIMnhmD0dNBhCCmxa5kuIWO9r6kynpluC NAbXOhoYp2jtUYpkNcwApZbDGUfSOg1vO46VEYh rY5cuQPiKEp6ZVScyJAmcbKsHhYfNFJzsEEwwUE 5LLZsLP7mwmnbSYbbJQleNSUdfqP1GOQziWKlL5 YqRIGaPF1wdjgoWTE4GNmhPGZlJII2QpSnMZNga 0Kqqlx6AjWmnCByVQpedYLfvpokoqNpYYKQTY1O LcQKXEtTXPWHU0GiOGLHKKNYIG5YLShAARKAJ1M HMbUeWU6YYTYKECchLkrDN3ibCtrfWMGhQAYiLE GVSLnMIOyJJIFAP8LuLSRRVRtXVX2GBBPAMLqBA vcbTPIiCGLmMSOYBGQrZJHfbrsyncGyg1z5pP5a lvUjvRs7hEKtbWFuJRIwyDmwJhffRSB7x0bozOM xXHNzdGUxODAwMFxhbnNpXGRlZmxhbmcxMDMzXG H3rrOlNMUdKTkoDJSgFSgbFy4rjZMhlDlhKiPiS RPbu5dtpoCCazfcdJw4i4qqRKFsGhR2lMOoNKeu I4fmjtSeyBFbLORcBZk1vY94NEEzuE3vyWWwETc dwvZgLgO8OTlnKCCjTlK4TODjeBBtHFEkG5rhAF DmYLtqJJVoATogxERbEJT4nNaji5U6xQBaeYYvp UvaSjXvWiDjXuFAt1DaXBl5pAvtJ0WeVZUlHzE1 zCFlZCIyULlrBFZqJQOetjA9tS98OCdkhcH7dQU ew6Jwc22cl061pK3krBAtSCK2KAIlAVYpaMLcRV GxKWL3XPXzyYTnB2czYQUsIQ9sodjwXTziEYasS LIcnCJ5JPZqeJGgV8EpPGIwPUxbIPMtdsb7SvBa Oy7bmRBvpPskPTgmk8buq5voxEZoTkx6AZZoMcJ iPibvFIqtv7Uki6aoSWSoxe5tBSQ8hZHgtWcbn7 C3tLRtARJykANuBXOhHJ0seSNiRGNdaO3hcqqjS QKfAvUvhhduPGJnlZmdwpOmWu8diFqsNKX9VGry L1nauA9lRvU0WRmiF9klhL9nQUk3SSrdCGPagUT 2bmS4NVSirPZfD5KboS2eCFIuFA1bjix4b9mvWS J5WZboEZEfBdG1mlL9COZqoLDoJWRroTosGMdhh 752SDC3VwVvHBYnq8GxT5FzzMyuK74izCywJ06e HHLpoVaviU1buBiolB8rYcApSqUtNHwcoJlfDC6 mNDCnG1sczICaKGMpWKQcF7diPoOsoP0wcVdaBN sajrHzVPDyFdr5MEPtsEBsOIBwDkh3STVgMGDlL 43vvmwkETO7aU1ao6ngg1KlONlbBSG9CGXys91e UMitzlE5FIrkLp51YSczSKM3UXcqBYL9jJ== COMMENT (test code = 3359) c9jraUFaZMUqhUDsOBQjELfcdfFtKYDkjMOzG7R qztytKCfpMA2rVI6bwSguqYEnhIUbPGEnQrZcc4 zae137oWLgg9nsYDXUykmlaHn7uRlcX37tz0C0T toyZ39ppHCrGAJ9BYPvEVDbvIVkFZWlNCK3EUYv gVNlQ2ncJUHmCI0afhxmJOhgVSbnLAProKO5GXZ gxZJaU0HuHNDqRQpoHEUrxsj4KtZwCy0epWOonO cyMFxwYXJkXHBsYWluXGZzMjAgUGxlYXNlIGFsc 77kw8XgRJS2jzxvF2AdTTSvZMlwWzUiVJDmZdK1 XHBhcn0= CPT Code(s) (test code = 3356) c9ktrJIeJIEvvWPzCPStNUmnppSsVJLhgROj Z3B yqjtvQUvmFM2gPL9thOpqzZFsqQEbAEEqLePgu4 suv922sZLeh9tlSUPSdtrzqPk8fCvrN23ah6I6D vvmP24yaGIuYTV4NFUsCALgeFPoQIGuTGR5WJFf yUKoR6hwRYEgVK3xignfMEkjCBrcQQYsdPY9YKA zjEKtG6PjMSYuJBwaBNQfmeq4OcScIe1daMFurW lwSRdxJWXnYPSyIZltGHPeCrYaKLbfHJxaTOy7I uQ0WQOndq8= CLINICAL DATA (test code = 335) z8iypBSfSXPybUTcXXSwJHtgbyQxZERnoH RwZ3B sdfgpNWqnLZ8iTY0nmGicvQJjzJWjHGJxTlBfo1 zjo654iKCjn3abJQQFuwgtoBw5vZwbS07rg0M8W qseC66vgGYoJDA8JDMsRXTykXMkJGHoPSL9JGLh rNEvM1ymWIRgPI4apireMSrhNStuLWIufIT8MNM nkOYoV0LbLSPkPHdfSAFoorm0VvQpTi3xxWKagL jkUCxeSUReXIQlGQvuHOYgVnZhDpEulM0jErSDZ EuzkJiwIXPpzSR2w8T4NU4aXHWtjR8iJOQveY3n gPMckWGaEFU1ARAjspLcmLMuq0NdBNMnAC0sQUG 7k930RIGcXMNceT3zAEI5s3YpN0OygRbsSJjwxg GwqoLbMV41ZUMzMVOtzWLyriHpBQNfBpIymUCcf XLstQUzSQzmw9UrsFNuCAmqDKRbEHGyXOZiHYRx lCTcn8XieGOjCXQzgdOwGlTtgKpzHUjfoXBpnfV scyMitwE3h8PeYfDHlFJgc2JbFRClhO3qUBJbHI ovcaSsqZ18vxEdHXt4feVwEYFsxZceEPF5Z0RjL P6qGGIorzCdHVM2bVAgROArnGYqoFhrlNsskoX8 tKLuGAMyDuRoeP7tb31tmDO8aWBuyMCrt6BkrNG 6zWGvUDPsTRCsXHKsYPEdLYYvgIDlWcV3zJOiZS 8ktMvsURBms5c3dXQxc1DgCZadJTCLI1JdLy9wW LsdyOTrJHgHFVbrwnZcp50lpSh6GLCvDXWqno9= SPECIMEN SOURCE (test code = 3377) g6lfvBUzGESvdNOpAZNzRFonezWxVNNj zZZfE0J lsjhiRJwhOK7hTW4dfPltmYEngGNsBDFrDnJer2 ufd698bSBrq3qnPHXZycxyiKw3aIalT05su9A0H qaeX52neCQrZFN0KUFmGQUkoRRhVHHjNKG4KPDx fVIhX3cbPFYkQS9shxdzAPmmPRswKIGqiEX6NQG ezEMgR1PuMCFvWBksRUQilqp8XzSfJf1elBExaI xwMFlsRJVpJBHpKXyzHDZjYaXgY63BQV4BEBISG ZWcNVEVWJZXKzIHZQiTI8rsEZD6 GROSS DESCRIPTION (test code = m8rjbWSoBAYxpEXTJUAgKSCfAF9xhYpolKk0 [facility] [id number]) aCTKwwnS3pQAjHXhuw8veLHV2a7jszsKIMsovED JaSJ6dBAnyHBExWE7gNlPxBHQgYgKyXGBmhLOdh gVvZzZnNEIrnAMuaJC4TXLgMW7krbchURzhQYaa TCAsvbW8ALOesKUwS4NpNLJyDY7ybsooVWX5RQL QYludJj8ajBVxbMhiXdDoCzWsZHFoVHWwPWTdvW lnMDTjJMk3jO7NTbetFUU0ZIFPVlvqQowbjSoxj 2VjdCBcXHNnIFxcaWQgNTEwMDAgXFxkYiBPVlIg OoS3UZF7KimwGcM9DVq4XOOHTPLxJCLxVqR6KOX 1EGh2UUNgJQ9fNShbnBHbOFacWdtfKRuiJ053IC vmDODaM9NpC3MiAAohVkEnCVltUAXrTXByDEamS NQyH4KKNEXmIQAwRAZ3LSHvBTa1TMesJ8QCDSUm SGNzYzSaZJo9NnN6AIe6KNHPBh8aDji0TWX3EVt 2CWN1WTj2XRtldBBlYOtwt3WjJoQkAUIuSBzrjg J7ZZJsytVcLHzubNsmbJ0oQdJwMbMQXxCZx21cj 88nOtnyUWQOcIG0MJRxnpWLJmetAGEvEY3ZYCAa AChoWSIsWzXeqUQeD7mbLIFhG80so5PWv1GeHH0 QGVw1voBqpsumjP9vLPCrqfRxISlrEoDxIYAGSN NlaXZlZCAxIGJydXNoIHRpcCBpbiAxNSBtbHMgY 0w0a2TsH9usljDmPtNjmdMtDPMdNGLuUDQ4kX6b rInnstnuA0YsrBPxoS9ptjIpJRCxEXgyUPvkORS zc9BbQHCvSQQvCWEmkmMdb5GqJCkwnpOnaPL2Qv G5DS5mMXSaYzUbGmLmRicjMZLpzlLRNvyaNHLxY MTzyWDEz3EkVVBZYeujnFvcCnEjrRYkSqN2JTGf tVTnNJN6LQ2piOhuTKMsL5XlX7MeucF5SCTmvwJ HDfrkLZFfWG1ZIKCzTyEsZCz4 MICROSCOPIC DESCRIPTION (test code = j5abgQUkACWijIYmLMAnUCyxauNpUK [place] [address]) ivgnyZAxtQU7oNO0gtPaeyBEiiCVuYNUbKsOyq3 dvy905jSJxe0jmYYACgyqpeGl5hVvnQ79zq3V2C uovK47ubRNeIBX3HSVcEPVoqLHsUEGwUXN2BFFg sHBiP3isJODqNW5vsbanGJrjGRfoXPHmcQC7EHQ kpRWyI6XnTHEsJVabUECjlbh5MoBjTv6zbIBvzI ndMXnqQIEuJBPxKVpyJSWeTdJzHOOtCb0ztQBkG lxwYXJccGFyZFxwYXJ9 STATEMENT OF ADEQUACY (test code = 2757) Satisfactory Gross assessment was performed at [facility], code = 2777) Department of Pathology, [address] [place] [address], Technical component was performed at [facility] er, (test code = 2778) Department of Pathology, [address] [place] [address], Professional component was performed at [facility] enter, (test code = 2779) Department of Pathology, [address] [place] [address], [facility]50:38Medical Cytology Report Case: [id number] Authorizing Provider: Gerry Pinzon Collected: 07/10/2022 10:44 AM Ordering Location: [address] Received: 07/11/2022 08:29 AM Service Pathologist: Karl Smallwood MD Specimen: Common Bile Duct, distal (lower third of the main duct) COMMON BILE DUCT, BRUSHING (CYTOSPINS AND CELL BLOCK): - NEGATIVE FOR MALIGNANT CELLS. - Rare benign columnar epithelial cells. Signing Pathologist Direct Phone Line: [phone] signed by Karl Smallwood MD on 07/12/2022 at 1:50 PMPlease also see surgical : [id number], [id number] y.o. F with ahistory of prior spinal surgery, and prior appendectomy and cholecystectomy, who presented as transfer from outside hospital where she had presented for abdominal pain and nausea. She was found to haveintra/extrahepatic duct and pancreatic duct dilation with a "12mm soft tissue structure up to the level of the ampulla" with normal LFT's for which GI was consulted.COMMON BILE DUCT BRUSHINGA. Common Bile DuctReceived 1 brush tip in 15 mls cytorich red; prepared 2 cytospins, cell block (A2) (cell block placed in formalin at 9:46 on 07/11/2022) Performed.[facility], Department of Pathology, [address] [place] [address], [facility], Department of Pathology, [address] [place] [address], [facility], Department of Pathology, [address] [place] [address], Ixtxqe [id number] 08:19:22 Test Item Value Reference Range Interpretation Comments Case Report (test code Surgical Pathology = 104) Report Case: [id number] Authorizing Provider: Gerry Pinzon Collected: 07/10/2022 10:07 AM Ordering Location: [address] Received: 07/11/2022 08:14 AM Service Pathologist: Josefina Huddleston MD Specimen: Biopsy, Gastric, r/o h. pylori DIAGNOSIS (test code = n3bahIXrZHXcw9ryIDVaxG 3220) FuZzEwMzNcZnRuYmpcdWMx IHtccnRmMVxlcGljMTAyMD DhJM4lkTsrjEm9lDgeASRi rsL1bGIuAGxdn2cxTJI3s1 kjugwbZQKiDExmRd2kxDYh jMkeWhNhXNFjVNi7dW94VY KvrC4hcPZvKOggquCxOYtr kiDecmPnFvg6PJO1xGzbNP KrxosxHjW3BUwhUTRmjiay SOf3RDryUNJzxOR0UWQgfZ SpO2EjAQLcIU2bsou3VWM3 RHtgRYLqMlX9OWEhmTBoOH LauKudBVmou059UMW8WlIi BLKyntWzbNjmpO7oScOtPW PPPfHsT5MxMVJOF09TM6ir SVhkLjUmChRNIP5TJUytZg HeGqtPLNVpR6DmPUdVX4nw FrXjEjbiSVMlZF9uHT9VIJ PfY1tFO89HYpQIKhHOIPgG RSBHQVNUUklUSVNccGFyIC CoWXCTZDrXDRjXOJVTE8Vp SEVMSUNPQkFDVEVSIFBZTE 9SSSBPUkdBTklTTVMgQlkg SCZFIFNUQUlOXHBhciAgLS SlHkCABDRLYaRnQa9VLJdI VEVTVElOQUwgTUVUQVBMQV GADIgvXFlBVXaIV5bPYSTL PPtQP08EOjDTBJUrgp70BL V9VyJpp8E6DUE6ZEAkXVFi d7zgKXDypRUbCmNdEeBdPf OqXbjalXQuFLYmJaHtp6ac p581eZDov1euHLMhKqI3jZ EoZLJhnZXkC551YUBaRWsl q6oew1PwBRPplMCsd5A9NJ SPilscoGy3vJnnD58ph8B9 LisrF5wyIODvANUgA2UiCO 6pOVMuByw9PQS7SUO5PQTk CQMfT0TlDY0qMEDulHUoHQ o8n9lhkKzwRUVnKGP8g6uq YPjoxwLbRW9koe4ipJf4f0 xjczEgRGVmYXVsdCBQYXJh L9PxzIieMz2huHv0rTykDv awLJX4Dpu3ZF5gqp04oue8 xJvlYQHjgdrlFaJ8NGqgEF YhyrmxBRj3SBcjROCbjEN8 UDDydXHcX6MnTBUxJO6jvr v7JFC4ZJvbMDFvZkT0GQYv hYXwMMTirZttZWzxp284KV G0LuNqYF2tQ7Aiy9Y7sW5i aXRcZGVmdGFiNzIwXGZvcm 3yeIFmYAdho0VxFNU5gdE3 pFBuaLRtRWBiJhV1IHrgQU 3tlp29LILwEWT3ag0dgBGf jItuueMjrEIpGUofI5IiUS Wey473VZVuV1EzILLmi5A9 vkZsKgXnNRAjjHI6eeA6CY TuLZ4lfkdzs9owZYyvIXlo BJIfurO6ubX0NEMhtWGeY8 CipF3lJCKgXJ0ujxucw9qp ZBT1TEvrFRNxYOK6IhSrWP Ahc7Didlr2KzWrs8ZurHHp AHlwW82if644ZQChdhUiD5 xwbGFpblxwbGFpblxmMFxm pxZ4OGThYJmhwqkuVWBfCS suS6skQdZmAYUmoXlcGSpz o3XdTQLvRDGtNyQpyTQeQQ JuSbm6BNSqkPOsSFXuRmOy H2usiaahHeXYZXKnp7vyU4 nkvUOCaJTdU3CsBFipsuEz FAipWEubLyEeKSm7BT06Ey FfYSGcwv69 CPT Code(s) (test code v3nnhPUdKSFzeVRnGBWfHF = 3357) jbckTmGHWgaKPlZ0Yxwxny REwqWE3sFN7ecQytaDQzmS MeOPCwKdWuv9taf468eVUb i1lqFOBCdqsqbSp4vQxcY2 1uk5E0InfrF80ntNBfWKJ9 CCSiHEKxxUGcYCYzVQG6VV EmbLOaA7liQNCbBH5eduir EKniSAvtTRTgzVJ6CVZawY AkK4LeVJGjPEdmYAUftdq5 ItUrZk8qbIMimMcjNTaiEO JkXHBsYWluXGZzMjAgODgz MDVccGFyfQ== CLINICAL HISTORY (test p6leuRBoEHGnwMNqIYXnNA code = 3356) zrbdJdKDOsjEUuY5Vltsii CQfqVQ0rWE2ysGftlGWvpD NqOYFgZhBva9myw209hVHl v8wpICZCpnakoMr9tSloK4 9lm2R5XdslL63mqEOtCRQ0 FYIgVNZgdFTrBYXoUCH4WL SggLKrZ3zwCLYiQV4ijukh QUfuCExiNOTnpQS5MWIwwB RnL1GwQTCfYGmlTYGywnx0 JvPnUo2eaIZshMsbKEwsYO JkXHBsYWluXGZzMjAgQmls kUHjaTOdAfQ2msHdxNtftg xwYXJ9 GROSS DESCRIPTION (test b8msfZSoWUUbeGEYYNHjFA code = [id number]) AvWF9gpSzrgAu9aQiaEPDj wbS3dCHuZUtqb7vzOSN9x5 ipjzCYIezrBLMgOL8sDVcq WOCeRW7kCeAlAWWjUiGvAO BhcGVydzEyMjQwXHBhcGVy aVY1NAYkRQ1iuymhNBznUQ vpFIOobaZ0XHZqcPJsQ4Gd ZEUzLB7sskugYPU0HGUGXu orCy2hjBSigQjdIfSgToTw YXJzZXQwXGZuaWwgQXJpYW z6sR0MMiamP99sl2H6Xyq2 CWKnRYEmT5TgSP5aOJPvsQ GgT59CItwcMRE6LSLOBgsz WcduzJfby2YswWEjWLHgRT xcaWQgNTEwMDAgXFxkYiBP YiCxLjC6UMS8XGCgUbA8YE f0ZYMNLDMqOTYuLeA9KNZ9 FAt2BPHhOA4nTGhtqPNiEI zvYwghJPokO245WNpwITPl K8KqT9WaJSgeElCqPApbIX AgDJCaXShfIGVcC6HRAHRr USZvYGReKLOrBOl2IMnvB5 ZTICIgIDMzMjQzOTAyIiA5 HZk5FOSQXx0yFnq2CMT8Kv x0PXC2CAq9LPkkeIXrCDhy s9WtAjBfVXTnJArkseQ9MS LkmbLkLKvkeWnumB0tVnVl KdSNBgDFsI1tf2tzZPjah3 XxvZOsvPAvTP8VDUGpqnKp SEefpAmwoM1sNfVmNomzbZ JjaFxlcGljTmVzdERvYzEg DQpcbHRycGFyXGxpbjBccm luMCANClxjZjFcZnMyMCBS XUUziXNrMRNbzzMsg8JsNY xpbiBsYWJlbGVkIHdpdGgg dMtvOWRdnUhyhhXrK4Y8qe PkXK9yVOGhULRbD2UxZQTj G13qZKVpqZ4vJGEpTI9nFR j4JRWgFQCqAokuCtnhdUG7 SPOqGMP4gsxpCkPusuYxZx S9GG9dg59jsNX0qKUvyRYe OuQzG77eyjRxIYUgK9nixB Csr7FllX3kLQNsUyMruIEr rWWoqOW3GRRmaH6iwL36ul MkyfUPUP9ytGLhHO6GSELc xcSTAzVcOAvhLUDnQ3MjlN 5sAP9ZOmzjYLMnURAVY6Gs C73qjXBdGC4JFPRiuoMLTg xnHHWxSBZbfPDDf9PgOARO ClxjZjBcZnMyMiANClxlcG ddCiVrbDGfQsG1PSIvaHQt ZMK5OC3hiIuyOWXvB7WhP8 XiqbB3KZVavtBEAizfJDBb IA0KfQ== MICROSCOPIC DESCRIPTION c7vufZRaSMKzmTPsXAPhAI (test code = 3371) yjdgDnRGMqdVRpK7Jvmhbm LAwyLM1gPY4aeOadhJNsjT PoMEAuVmUde2tbt536iZFo o4hsLQNXxabgzYl8vAedE9 3et6Y6TxtpD31vbCVmZTC4 POLmRBIpcKIaRQKlHGQ1ZM LzsWEzD2mfTQBxQA3vqfco ASflMPdfZIKsrSP3YPNotN OkL4XhAQVyHZyuGAWltaq6 TxQdRp4bcTIwxDbeHLgrGN JkXHBsYWluXGZzMjAgUGVy Lb6qlFUfRmfkUVPfeZBtXB xwYXJ9 [facility] [id number] 08:19:22Surgical Pathology Report Case: [id number] Authorizing Provider: Gerry Pinzon Collected: 07/10/2022 10:07 AM Ordering Location: [address] Received: 07/11/2022 08:14 AM Service Pathologist: Josefina Huddleston MD Specimen: Biopsy, Gastric, r/o h. pylori A. STOMACH, RANDOM BIOPSIES: - MILD CHRONIC INACTIVE GASTRITIS - NEGATIVE FOR HELICOBACTER PYLORI ORGANISMS BY H&E STAIN - NEGATIVE FOR INTESTINAL METAPLASIA, DYSPLASIA, MALIGNANCY Signing Pathologist Direct Phone Line: [phone] signed by Josefina Huddleston MD on 07/12/2022 at 8:19 [id number] obstructionA. Biopsy, GastricReceived in formalin labeled with the patient's name, medical record number and "biopsy, gastric" are 3 robison soft tissue fragments each measuring 0.3 cm submitted in toto in A1.FELIPE De La Vega, NERI (ASCP)cmPerformed.[id number] 10:00:34 Test Item Value Reference Range Interpretation Comments Cytology (test code = See Separate Report 0399) [facility] [id number] 10:00:34 Test Item Value Reference Range Interpretation Comments CYTOLOGY RESULT POINTER See Separate Report (BEAKER) (test code = 2629) COMPREHENSIVE METABOLIC [id number] 13:38:25 Test Item Value Reference Range Interpretation Comments TOTAL PROTEIN 5.5 gm/dL 6.0-8.3 L Specimen sligh tly (BEAKER) (test hemolyzed code = 770) ALBUMIN (BEAKER) 3.5 g/dL 3.5-5.0 Specimen sl ightly (test code = 1145) hemolyzed ALKALINE 56 U/L 40-150 PHOSPHATASE (BEAKER) (test code = 346) BILIRUBIN TOTAL 0.3 mg/dL 0.2-1.2 Specimen sli ghtly (BEAKER) (test hemolyzed code = 377) SODIUM (BEAKER) 143 meq/L 136-145 (test code = 381) POTASSIUM (BEAKER) 4.4 meq/L 3.5-5.1 Specimen slightly (test code = 379) hemolyzed CHLORIDE (BEAKER) 107 meq/L 98-107 (test code = 382) CO2 (BEAKER) (test 27 meq/L 22-29 code = 355) BLOOD UREA 7 mg/dL 7-21 NITROGEN (BEAKER) (test code = 354) CREATININE 0.84 mg/dL 0.57-1.25 Specimen slight ly (BEAKER) (test hemolyzed code = 358) GLUCOSE RANDOM 82 mg/dL 70-105 (BEAKER) (test code = 652) CALCIUM (BEAKER) 8.2 mg/dL 8.4-10.2 L (test code = 697) AST (SGOT) 20 U/L 5-34 Specimen slight ly (BEAKER) (test hemolyzed code = 353) ALT (SGPT) 11 U/L 6-55 Specimen slight ly (BEAKER) (test hemolyzed code = 347) EGFR (BEAKER) 79 Interpretatio n of eGFR (test code = 1092) mL/min/1.[address] age Description sq m Result G1 Sienna l or high >=90 G2 Mildly decreased 60-89 G3a Mildl y to moderately 45-5 9 G3b Moderately to s everely 30-44 G4 Severl y decreased 15-29 G5 Kidne y failure <15Reported eGF R is based on the CKD-EPI 2021 equation that d oes not use a race coefficientEsti mated GFR is not as accur ate as Creatinine Kirsten gallegos in predicting glom erular filtration rate . Estimated GFR is not appl icable for dialysis patien ts [place], [id number] 10:45:00Abnormal imaging Reason for exam:->dilated bile ductsALEXEY [facility] : 1960 Sex: FAn imaging unit was utilized for this procedure. No radiologist interpretation was requested. Refer to the EMR for findings. Refer to PACS for any patient radiation dose information.BASIC METABOLIC [id number] 06:53:52 Test Item Value Reference Range Interpretation Comments SODIUM (BEAKER) 143 meq/L 136-145 (test code = 381) POTASSIUM 4.2 meq/L 3.5-5.1 (BEAKER) (test code = 379) CHLORIDE (BEAKER) 111 meq/L 98-107 H (test code = 382) CO2 (BEAKER) 24 meq/L 22-29 (test code = 355) BLOOD UREA 14 mg/dL 7-21 NITROGEN (BEAKER) (test code = 354) CREATININE 0.78 mg/dL 0.57-1.25 (BEAKER) (test code = 358) GLUCOSE RANDOM 83 mg/dL 70-105 (BEAKER) (test code = 652) CALCIUM (BEAKER) 8.6 mg/dL 8.4-10.2 (test code = 697) EGFR (BEAKER) 86 Interpretatio n of eGFR (test code = mL/min/1.73 values Stage De scription 1092) sq m Result G1 Sienna l or high >=90 G2 Mildly decreased 60-89 G3a Mildl y to moderately 45-5 9 G3b Moderately to s everely 30-44 G4 Severl y decreased 15-29 G5 Kidne y failure <15Reported eGF R is based on the CKD-EPI 2021 equation that d oes not use a race coefficientEsti mated GFR is not as accur ate as Creatinine Kirsten el in predicting glom erular filtration rate . Estimated GFR is not appl icable for dialysis patien ts Bottle Blowing Machine Tender ID - MARCOHEPATIC FUNCTION [id number] 06:53:52 Test Item Value Reference Range Interpretation Comments TOTAL PROTEIN (BEAKER) (test code = 6.1 gm/dL 6.0-8.3 770) ALBUMIN (BEAKER) (test code = 1145) 3.7 g/dL 3.5-5.0 BILIRUBIN TOTAL (BEAKER) (test code 0.4 mg/dL 0.2-1.2 = 377) BILIRUBIN DIRECT (BEAKER) (test 0.1 mg/dL 0.1-0.5 code = 706) ALKALINE PHOSPHATASE (BEAKER) (test 70 U/L 40-150 code = 346) AST (SGOT) (BEAKER) (test code = 20 U/L 5-34 353) ALT (SGPT) (BEAKER) (test code = 15 U/L 6-55 347) Bottle Blowing Machine Tender ID - MARCOCBC W/PLT COUNT & AUTO [id number] 05:57:10 Test Item Value Reference Range Interpretation Comments WHITE BLOOD CELL COUNT (BEAKER) 4.6 K/ L 3.5-10.5 (test code = 775) RED BLOOD CELL COUNT (BEAKER) 4.77 M/ L 3.93-5.22 (test code = 761) HEMOGLOBIN (BEAKER) (test code = 14.3 GM/DL 11.2-15.7 410) HEMATOCRIT (BEAKER) (test code = 44.3 % 34.1-44.9 411) MEAN CORPUSCULAR VOLUME (BEAKER) 93 fL 79-95 (test code = 753) MEAN CORPUSCULAR HEMOGLOBIN 30.0 pg 25.6-32.2 (BEAKER) (test code = 751) MEAN CORPUSCULAR HEMOGLOBIN CONC 32.3 GM/DL 32.2-35.5 (BEAKER) (test code = 752) RED CELL DISTRIBUTION WIDTH 14.7 % 11.7-14.4 H (BEAKER) (test code = 412) PLATELET COUNT (BEAKER) (test 182 K/CU MM 150-450 code = 756) MEAN PLATELET VOLUME (BEAKER) 10.0 fL 9.4-12.3 (test code = 754) NUCLEATED RED BLOOD CELLS 0 /100 WBC 0-0 (BEAKER) (test code = 413) NEUTROPHILS RELATIVE PERCENT 48 % (BEAKER) (test code = 429) LYMPHOCYTES RELATIVE PERCENT 42 % (BEAKER) (test code = 430) MONOCYTES RELATIVE PERCENT 6 % (BEAKER) (test code = 431) EOSINOPHILS RELATIVE PERCENT 3 % (BEAKER) (test code = 432) BASOPHILS RELATIVE PERCENT 1 % (BEAKER) (test code = 437) NEUTROPHILS ABSOLUTE COUNT 2.22 K/ L 1.56-6.13 (BEAKER) (test code = 670) LYMPHOCYTES ABSOLUTE COUNT 1.94 K/ L 1.18-3.74 (BEAKER) (test code = 414) MONOCYTES ABSOLUTE COUNT (BEAKER) 0.25 K/ L 0.24-0.36 (test code = 415) EOSINOPHILS ABSOLUTE COUNT 0.13 K/ L 0.04-0.36 (BEAKER) (test code = 416) BASOPHILS ABSOLUTE COUNT (BEAKER) 0.03 K/ L 0.01-0.08 (test code = 417) IMMATURE GRANULOCYTES-RELATIVE 0.20 % 0.00-1.00 PERCENT (BEAKER) (test code = 2801) BASIC METABOLIC [id number] 06:03:00 Test Item Value Reference Range Interpretation Comments SODIUM (test code = 142 MMOL/L 133-145 N NA) POTASSIUM (test code = 4.1 MMOL/L 3.6-5.2 N K) CHLORIDE (test code = 106 MMOL/L 100-108 N CL) CARBON DIOXIDE (test 30 MMOL/L 22-32 N code = CO2) GLUCOSE (test code = 86 MG/DL 65-99 N Results of this assay GLU) method may be f alsely depressed orele vated if patient is t aking sulfasalazine. BLOOD UREA NITROGEN 11 MG/DL 6-20 N (test code = BUN) GLOMERULAR FILTRATION 67 45-104 N Report ing units: RATE (test code = GFR) mL/mi n/1.73m\\S\\2 (Modified MDRD Formula) CREATININE (test code 0.86 MG/DL 0.60-1.00 N = CREAT) CALCIUM (test code = 8.3 MG/DL 8.7-10.5 L CA) [id number] 06:03:00 Test Item Value Reference Range Interpretation Comments MAGNESIUM (test code = MAG) 2.2 MG/DL 1.8-2.4 N CBC W/AUTO [id number] 05:53:00 Test Item Value Reference Range Interpretation [...] 0.0 X10 3/uL 0.0-0.2 N NRBC#) LACTIC [id number] 15:26:00 Test Item Value Reference Range Interpretation Comments LACTIC ACID (test code = LACT) 1.7 MMOL/L 0.5-2.2 N LACTIC [id number] 12:18:00 Test Item Value Reference Range Interpretation Comments LACTIC ACID (test code = LACT) 3.7 MMOL/L 0.5-2.2 H UA RFLX MICROSCOPIC [id number] 11:49:00 Test Item Value Reference Range Interpretation [...] culture: RiskForSepsis-no oth srcURINE SOURCE: Clean CatchUA [id number] 11:49:00 Test Item Value Reference Range Interpretation Comments UA RBC (test code = RBCU) 0-2 #/HPF NONE SEEN UA HYALINE CAST (test code = 21-25 #/lpf HYALU) UA MUCUS (test code = MUCU) 2+ #/lpf NONE SEEN Indication for culture: RiskForSepsis-no oth srcURINE SOURCE: Clean CatchUA RFLX MICROSCOPIC [id number] 11:46:00 Test Item Value Reference Range Interpretation [...] culture: RiskForSepsis-no oth srcURINE SOURCE: Clean CatchUA [id number] 11:46:00 Test Item Value Reference Range Interpretation Comments UA RBC (test code = RBCU) #/HPF NONE SEEN Indication for culture: RiskForSepsis-no oth srcURINE SOURCE: Clean CatchUA RFLX MICROSCOPIC [id number] 11:46:00 Test Item Value Reference Range Interpretation [...] culture: RiskForSepsis-no oth srcURINE SOURCE: Clean CatchUA [id number] 11:46:00 Test Item Value Reference Range Interpretation Comments UA RBC (test code = RBCU) #/HPF NONE SEEN Indication for culture: RiskForSepsis-no oth srcURINE SOURCE: Clean CatchDRUG OF ABUSE SCREEN [id number] 11:41:00 Test Item Value Reference Interpretation Comments [...] by thao loja methods (i.e., GC/MS) at [facility]. Results of scre en may not be usedin crimi nal justice, job performance or professionalcre dential review, or infa nt custody issues. Negati ve Reserve Level ng/ml ------- ----- Cocaine 3 00 Methamphetamine (Ecstacy) 500 Cannabinoid s (THC) 50 Amphetamine 100 0 Barbiturates 20 0 Benzodiazepines 200 Opiates 300 Phencyclidi ne (PCP) 25 BASIC METABOLIC [id number] 11:30:00 Test Item Value Reference Range Interpretation [...] units: RATE (test code = GFR) mL/mi n/1.73m\\S\\2 (Modified MDRD Formula) CREATININE (test code 1.09 MG/DL 0.60-1.00 H = CREAT) CALCIUM (test code = 9.1 MG/DL 8.7-10.5 N CA) HEPATIC FUNCTION [id number] 11:30:00 Test Item Value Reference Range Interpretation [...] 50-136 N TOTAL (test code = ALKP) [id number] 11:30:00 Test Item Value Reference Range Interpretation [...] is taking high dos es of Biotin. [id number] 11:30:00 Test Item Value Reference Range Interpretation Comments ACETAMINOPHEN (test < 1 MCG/ML 10-30 L Acetamin ophen is code = ACET) possibly toxic at levels of: 1. m ore than 150 MCG/ML 4 hours post jocelin stion. 2. more than 50 MCG/ML 12 hours post ingestion. [id number] 11:30:00 Test Item Value Reference Range Interpretation Comments SALICYLATE (test code = < 3 MG/DL 0-20 N Refe rence Range: KENDALL) Analgesic...... ...... ...... < 10 mg/ dl Therapeutic.... ...... ...... 15-20 mg /dl Mild Toxicity....... ...... . > 30 mg/dl Se alysa Toxicity....... ..... > 60 mg/dl [id number] 11:30:00 Test Item Value Reference Range Interpretation [...] forlegal or emp loyment evaluative purp oses. [id number] 11:29:00 Test Item Value Reference Range Interpretation Comments AMMONIA (test code = < 10 UMOL/L 11-35 L VERIFIE D BY REPEATED AMM) ANALYSIS BY Renata Sommer 07/30/20Results of this assay meth od may be falsely depr essed orelevated if p atient is taking sulfasalazine. - XR CHEST 1 [id number] 11:20:00 [facility] : 1960 Sex: F Patient Name: AYDE GRAFF Unit No: [id number] EXAMS: CPT CODE: [id number] XR CHEST 1 V 78943 Reason: altered mental status - XR CHEST 1 V 07/30/2020 10:36 AM Altered mental status A frontalportable chest compared with 04/20/2017 shows clear lungs and pleural spaces. The cardiac and mediastinal silhouettes are normal. The bones show post cervical fusion changes, post lumbar fusion changesand postsurgical fixation of the proximal right humerus. IMPRESSION: Negative chest for acute disease. at 1120 Reported and signed by: Umair Pérez MD CC: Mariaa Sanchez MD; Simon Mcadams MD Technologist: Reema Soto RT; Khurram Islas Trscrpt Dt/ (1120)[id number] Orig Print D/T: S: 07/30/2020 (1123) [facility] Area NAME: AYDE GRAFF [address] PHYS: Mariaa [place]uentes [place] [address] : 1960 AGE: 60 SEX: F LOC: [place] PHONE #: [phone] EXAM DATE: 07/30/2020 STATUS: REG ER FAX #: RAD NO: DC Dt: PAGE 1 Signed ReportLACTIC [id number] 11:18:00 Test Item Value Reference Range Interpretation Comments LACTIC ACID (test code = LACT) 3.7 MMOL/L 0.5-2.2 H - CT C-SPINE W/O [id number] 11:18:00 [facility] 1960 Sex: F Patient Name: AYDE GRAFF Unit No: [id number] EXAMS: CPT CODE: [id number] CT C-SPINE W/O CONT 15874 Reason: found down Indication: Found down, altered mental status TECHNIQUE: 2 mm images through the cervical spine with sagittal and coronal [...] Mcadams MD Technologist: ANNETTA Alarcon Trscrpt Dt/ (1118)Ceasar Orig Print D/T: S: 07/30/2020 (1122) CTDI: DLP: [facility] Area NAME: AYDE GRAFF [address] PHYS: Maria[place] [address] : 1960 AGE: 60 SEX: F LOC: [place] PHONE #: [phone] EXAM DATE: 07/30/2020 STATUS: REG ER FAX #: RAD NO: DC Dt: PAGE 1 Signed Report- CT HEAD/BRAIN W/O [id number] 11:11:00 [facility] : 1960 Sex: F Patient Name: AYDE GRAFF Unit No: [id number] EXAMS: CPT CODE: [id number] CT HEAD/BRAIN W/O CONT 35521 Reason: altered mental status Indication: Altered mental status TECHNIQUE: Contiguous 5 mm images were obtained through brain. No [...] MD; Simon Mcadams MD Technologist: Ijeoma Zuluaga, ANNETTA Trscrpt Dt/ (1111)t.JUAN Orig Print D/T: S: 07/30/2020 (1115) CTDI: DLP: [facility] NAME: AYDE GRAFF [address] PHYS: Mariaa [place] [address] : 1960 AGE: 60 SEX: F LOC: [place] PHONE#: [phone] EXAM DATE: 07/30/2020 STATUS: REG ER FAX #: RAD NO: DC Dt: PAGE 1 Signed ReportPROTHROMBIN [id number] 10:56:00 Test Item Value Reference Range Interpretation [...] Palmaz-Cayden s tent *: 2.0 - 3.0 Pa tients with mechanical heart valve *: 2.5 - 3.5 Patients with flex-stent *: 3 .0 - 4.0(*) = logistics and planning manager's suggested range Is patient on anticoagulants? UnknownTHROMBOPLASTIN TIME [id number] 10:56:00 Test Item Value Reference Range Interpretation Comments THROMBOPLASTIN TIME 23.3 SECONDS 22.5-35.3 N *Therap eutic level PARTIAL (test code = for hep johana: 1.5 - PTT) 2.5 times the average patient value of 30.0 seconds. The aP TT tet should not be used to evaluat e low moleculat weigh t heparin anticoagulant therapy. Is patient on anticoagulants? UnknownCBC W/AUTO [id number] 10:49:00 Test Item Value Reference Range Interpretation [...]
[2022-07-12] MEDS ORDERED: NA CHLORIDE 0.9% 1,000 ML ONE (16:16)
--- NOTE | 2022-07-12 16:24 | RAD REPORT ---
EXAM DESCRIPTION: Milka Single View07/12/2022 4:09 pm CLINICAL HISTORY: nausea/vomiting COMPARISON: No comparisons TECHNIQUE: Portable AP view of the chest. FINDINGS: The lungs are clear. Superimposition of soft tissues particularly along the right hemithor ax somewhat limits evaluation. No pneumothorax or effusion. The cardiomediastinal contours are unrem arkable. Hardware fusion of the lower cervical spine and proximal right humerus. IMPRESSION: No acute cardiopulmonary process.
[2022-07-12 16:33] LABS: Absolute Lymphocytes (CBC) 0.6 K/uL (0.7-4.9); Hematocrit 45.4 % (36.0-45.0); MCV 90.3 fL (80-100); MPV 8.8 fL (7.6-11.3); RBC Red Blood Cell Count 5.03 M/uL (3.86-4.86)
[2022-07-12 16:35] LABS: Protime INR 0.89
[2022-07-12 16:57] LABS: Albumin 4.6 g/dL (3.4-5.0); Bilirubin Total 0.6 mg/dL (0.2-1.0); Magnesium 2.4 mg/dL (1.6-2.4); Potassium 3.8 mEq/L (3.5-5.1); Protein, Total 8.5 g/dL (6.4-8.2); Troponin High Sensitivity 9.1 pg/mL (<58.9)
[2022-07-12] MEDS ORDERED: ONDANSETRON 4 MG/2 ML VIAL ONE (17:03)
[2022-07-12] MEDS ORDERED: MORPHINE 4 MG/ML SYR ONE (17:03)
--- NOTE | 2022-07-12 18:32 | RAD REPORT ---
EXAM DESCRIPTION: CT - Abdomen Pelvis W Contrast - 07/12/2022 5:34 pm CLINICAL HISTORY: nausea/vomiting;Abd pain COMPARISON: Abdomen Pelvis W Contrast dated 07/07/2022 TECHNIQUE: Thin cut axial CT imaging of the abdomen and pelvis was performed following intravenous a dministration of 95 mL Isovue 300. Multiplanar reformats were generated and reviewed. All CT scans are performed using dose optimization technique as appropriate and may include automated exposure control or mA/KV adjustment according to patient size. FINDINGS: Reticular opacities and peripheral atelectatic changes along the lower lobes and basal asp ects of the right middle lobe. Small sliding hiatal hernia. The liver, spleen, and pancreas show no suspicious findings. Gallbladder has been surgically removed. Mild intrahepatic biliary ductal dilation persists, improved since the prior exam. Improved dilation of the extrahepatic bile ducts. Symmetric renal function is seen with no hydronephrosis or suspicious renal mass. Stable left lower p ole 1 centimeter fluid density cyst No dilated bowel loops. Mild wall thickening and mucosal hyperenhancement along the nondistended sigm oid colon and rectum, could reflect nonspecific colitis. The appendix is not discretely visualized, a lthough no appreciable inflammatory changes are seen in its location. No free air or free fluid. No h ernia, mass or bulky lymphadenopathy. The urinary bladder is without significant finding. No suspicious bony findings. IMPRESSION: Nonspecific long segment mild inflammatory changes along the nondistended sigmoid colon and rectum, could reflect infectious or inflammatory colitis. No other acute intra-abdominal process. Peripheral bibasilar reticular opacities, could reflect an early or resolving infectious or inflammat ory process of the lungs.
--- NOTE | 2022-07-12 19:45 | EDPHYS ---
Physician Documentation [facility] Name: Kim Winters Age: 62 yrs Sex: Female : 1960 Arrival Date: 07/12/2022 Time: 14:08 Bed 5 Private MD: Virginie Marinelli R ED Physician Leandro Joel HPI: 07/12 15:20 This 62 yrs old Female presents to ER via Wheelchair with complaints of Abdominal Pain, cp Nausea/Vomiting. 15:20 The patient presents with abdominal pain. cp 15:20 Onset: The symptoms/episode began/occurred this morning. Associated signs and symptoms: cp Pertinent positives: nausea and vomiting, Pertinent negatives: chest pain, diarrhea, dysuria, fever, headache, palpitations. The symptoms are described as constant. Severity of pain: in the emergency department the pain is unchanged despite home interventions. Historical: - Allergies: 14:21 No Known Allergies; ap3 - PSHx: 14:21 back X 3; neck; Shoulder - R; ap3 - Immunization history:: Client reports receiving the 2nd dose of the Covid vaccine. - Social history:: Smoking status: Patient denies any tobacco usage or history of. ROS: 15:25 Constitutional: Positive for poor PO intake, Negative for body aches, chills, fever. cp 15:25 Eyes: Negative for injury, pain, redness, and discharge. cp 15:25 Cardiovascular: Negative for chest pain, edema, palpitations. cp 15:25 ENT: Negative for drainage from ear(s), ear pain, sore throat, difficulty swallowing, cp difficulty handling secretions. 15:25 Respiratory: Negative for cough, shortness of breath, wheezing. 15:25 Abdomen/GI: Positive for abdominal pain, nausea and vomiting, Negative for diarrhea, hematemesis, black/tarry stool, rectal bleeding. 15:25 : Negative for urinary symptoms. 15:25 Neuro: Negative for altered mental status, dizziness, headache, numbness, weakness. 15:25 All other systems are negative. Exam: 15:30 Constitutional: The patient appears in no acute distress, alert, awake, cp non-diaphoretic, non-toxic, well developed, well nourished, uncomfortable. 15:30 Head/Face: Normocephalic, atraumatic. cp 15:30 Eyes: Periorbital structures: appear normal, Conjunctiva: normal, no exudate, no injection, Sclera: no appreciated abnormality, Lids and lashes: appear normal, bilaterally. 15:30 ENT: External ear(s): are unremarkable, Nose: is normal, Mouth: Lips: moist, Oral cp mucosa: moist, Posterior pharynx: is normal, airway is patent, no erythema, no exudate. 15:30 Neck: ROM/movement: is normal, is supple, without pain, no range of motions limitations, no meningismus. 15:30 Chest/axilla: Inspection: normal. 15:30 Cardiovascular: Rate: normal, Rhythm: regular, JVD: is not appreciated. cp 15:30 Respiratory: the patient does not display signs of respiratory distress, Respirations: normal, no use of accessory muscles, no retractions, labored breathing, is not present, Breath sounds: are clear throughout, no decreased breath sounds, no stridor, no wheezing. 15:30 Abdomen/GI: Inspection: abdomen appears normal, Bowel sounds: active, all quadrants, Palpation: soft, in all quadrants, severe abdominal tenderness, in the abdomen diffusely, rebound tenderness, is not appreciated, voluntary guarding, is elicited in all quadrants. 15:30 Back: CVA tenderness, is absent. 15:30 Skin: no rash present. 15:30 Neuro: Orientation: to person, place \T\ time. Mentation: is normal, Motor: moves all fours, strength is normal, Sensation: is normal. 16:42 ECG was reviewed by the Attending Physician. cp Vital Signs: 14:18 BP 170 / 91; Pulse 70; Temp 99.1(TE); Pulse Ox 98% ; Weight 52.16 kg; Pain 10/10; ap3 16:26 BP 179 / 91; Pulse 67; Resp 16 S; Pulse Ox 96% on R/A; Pain 10/10; kc6 17:45 BP 170 / 92; Pulse 65; Resp 15; Pulse Ox 97% ; kc6 18:12 BP 115 / 73; Pulse 61; Resp 18 S; Pulse Ox 98% on R/A; kc6 18:44 BP 115 / 73; Pulse 62; Resp 19 S; Pulse Ox 94% on R/A; kc6 19:26 BP 112 / 74; Pulse 70; Resp 20 S; Pulse Ox 99% on R/A; ha1 14:18 Pain Scale: Adult ap3 16:26 Pain Scale: Adult kc6 MDM: 15:19 Patient medically screened. cp 16:00 Differential diagnosis: appendicitis, bowel obstruction, gastritis, pancreatitis, cp Peptic Ulcer Disease, Perf. Duodenal Ulcer, Perf. Gastric Ulcer, Pyelonephritis, Ureterolithiasis, urinary tract infection. 19:43 Data reviewed: vital signs, nurses notes, lab test result(s), EKG, radiologic studies, cp CT scan, plain films. 19:43 Consideration of Admission/Observation Escalation of care including cp admission/observation considered. I considered the following discharge prescriptions or medication management in the emergency department Medications were administered in the Emergency Department. See MAR. Counseling: I had a detailed discussion with the patient and/or guardian regarding: the historical points, exam findings, and any diagnostic results supporting the discharge/admit diagnosis, lab results, radiology results, the need for outpatient follow up, a pre school manager, to return to the emergency department if symptoms worsen or persist or if there are any questions or concerns that arise at home. Response to treatment: the patient's symptoms have markedly improved after treatment, Pain and nausea markedly improved. Vomiting resolved, and as a result, I will discharge patient. Special discussion: Based on the patient's Hx, exam, and Dx evaluation, there is no indication for emergent surgery or inpatient Tx. It is understood by the patient/guardian that if the Sx's persist or worsen they need to return immediately for re-evaluation. 07/12 15:24 Order name: CBC with Diff; Complete Time: 16:40 07/12 16:41 Interpretation: Normal except: RBC 5.03; HGB 15.1; HCT 45.4; RDW 15.3; LEILANI% 85.9; LYM% cp 10.0; MN% 3.0; LYMA 0.6. 07/12 15:24 Order name: Magnesium; Complete Time: 16:59 cp 07/12 15:24 Order name: NT PRO-BNP; Complete Time: 16:59 cp 07/12 16:59 Interpretation: Abnormal: NT PRO-BNP 542. 07/12 15:24 Order name: PT-INR; Complete Time: 16:40 07/12 16:42 Interpretation: Reviewed. 07/12 15:24 Order name: Troponin HS; Complete Time: 16:59 cp 07/12 17:01 Interpretation: Reviewed. cp 07/12 15:24 Order name: Lipase; Complete Time: 16:59 cp 07/12 17:00 Interpretation: Reviewed. cp 07/12 15:24 Order name: CMP; Complete Time: 16:59 cp 07/12 17:00 Interpretation: Normal except: GFR 69; GLOB 3.9; TP 8.5. cp 07/12 15:24 Order name: XRAY Chest (1 view); Complete Time: 16:40 cp 07/12 15:48 Order name: CT Abd/Pelvis - IV Contrast Only; Complete Time: 18:35 cp 07/12 15:24 Order name: EKG; Complete Time: 15:24 cp 07/12 15:24 Order name: Cardiac monitoring; Complete Time: 15:58 cp 07/12 15:24 Order name: EKG - Nurse/Tech; Complete Time: 16:41 cp 07/12 15:24 Order name: IV Saline Lock; Complete Time: 16:24 cp 07/12 15:24 Order name: Labs collected and sent; Complete Time: 16:24 cp 07/12 15:24 Order name: O2 Per Protocol; Complete Time: 15:58 cp 07/12 15:24 Order name: O2 Sat Monitoring; Complete Time: 15:58 cp 07/12 18:37 Order name: PO challenge; Complete Time: 18:46 cp EC:42 Rate is 66 beats/min. Rhythm is regular. AR interval is normal. QRS interval is normal. cp QT interval is normal. T waves are Inverted in lead aVR. Interpreted by me. Reviewed by me. Administered Medications: 16:24 Drug: morphine IVP or IV 4 mg Route: IVP; Infused Over: 4 mins; Site: right antecubital;kc6 18:44 Follow up: Response: No adverse reaction; Pain is unchanged, physician notified; RASS: kc6 Alert and Calm (0) 16:24 Drug: Ondansetron IVP 4 mg Route: IVP; Site: right antecubital; kc6 18:45 Follow up: Response: No adverse reaction; Nausea unchanged kc6 16:24 Drug: Famotidine IVP 20 mg Route: IVP; Site: right antecubital; kc6 18:45 Follow up: Response: No adverse reaction kc6 16:24 Drug: NS 0.9% IV 500 ml Route: IV; Rate: bolus; Site: right antecubital; kc6 18:45 Follow up: Response: No adverse reaction; IV Status: Completed infusion; IV Intake: kc6 500ml 17:08 Drug: NS 0.9% IV 500 ml Route: IV; Rate: 100 ml/hr; Site: right antecubital; kc6 18:45 Follow up: Response: No adverse reaction; IV Status: Infusion continued kc6 17:08 Drug: morphine IVP or IV 4 mg Route: IVP; Infused Over: 4 mins; Site: right antecubital;kc6 18:45 Follow up: Response: No adverse reaction; Pain is decreased; RASS: Alert and Calm (0) kc6 17:08 Drug: Ondansetron IVP 4 mg Route: IVP; Site: right antecubital; kc6 18:46 Follow up: Response: No adverse reaction; Nausea is decreased kc6 19:47 Drug: Dicyclomine IM 20 mg Route: IM; Site: right gluteus; jb4 19:54 Follow up: Response: Medication administered at discharge. jb4 19:47 Drug: metoCLOPramide IVP 10 mg Route: IVP; Site: right antecubital; jb4 19:55 Follow up: Response: Medication administered at discharge. jb4 Disposition Summary: 07/12/22 19:44 Discharge Ordered Location: Home cp Problem: new cp Symptoms: have improved cp Condition: Stable cp Diagnosis - Nausea with vomiting, unspecified cp - Abdominal pain, unspecified cp Followup: cp - With: Private Physician - When: 2 - 3 days - Reason: Recheck today's complaints Discharge Instructions: - Discharge Summary Sheet cp - Abdominal Pain, Adult cp - Nausea and Vomiting, Adult cp Forms: - Medication Reconciliation Form cp - Thank You Letter cp - Antibiotic Education cp - Prescription Opioid Use cp Prescriptions: - Augmentin 875-125 mg Oral Tablet - take 1 tablet by ORAL route every 12 hours for 10 days; 20 tablet; Refills: 0, cp Product Selection Permitted - promethazine 25 mg Oral Tablet - take 1 tablet by ORAL route every 6 hours As needed; 20 tablet; Refills: 0, cp Product Selection Permitted - dicyclomine 20 mg Oral Tablet - take 1 tablet by ORAL route 4 times per day; 30 tablet; Refills: 0, Product cp Selection Permitted Addendum: 07/14/2022 07:08 Co-signature as Attending Physician, Leandro Joel MD I reviewed the patient's care r t provided by the Advanced Practice Provider and agree with the diagnosis and treatment plan. Signatures: Dispatcher [employer] EDMS Bola Rocha PA PA cp Bassem Billy RN RN jb4 Brie Rodriguez RN RN ap3 Marquita Brumfield RN RN kc6 Leandro Joel MD MD rt Corrections: (The following items were deleted from the chart) 07/12 17:00 17:00 Normal except: GFR 69. cp cp 17:00 17:00 Normal except: GFR 69; GLOB 3.9. cp cp
--- NOTE | 2022-07-12 19:45 | ER ---
Nurse's Notes [facility] Name: Kim Winters Age: 62 yrs Sex: Female : 1960 Arrival Date: 07/12/2022 Time: 14:08 Bed 5 Private MD: Virginie Marinelli R Diagnosis: Nausea with vomiting, unspecified;Abdominal pain, unspecified Presentation: 07/12 14:18 Chief complaint: Patient states: she started having low abdominal pain this morning at ap3 0900 with nausea and vomiting. It is reported the patient recently had a procedure at [facility] and was discharged Sunday07/10/2022. Patient has not had a BM since her discharge. Coronavirus screen: At this time, the client does not indicate any symptoms associated with coronavirus-19. Ebola Screen: No symptoms or risks identified at this time. Initial Sepsis Screen: Does the patient meet any 2 criteria?. Risk Assessment: Do you want to hurt yourself or someone else? Patient reports no desire to harm self or others. Onset of symptoms was July 12, 2022 at 09:00. 14:18 Method Of Arrival: Wheelchair ap3 14:18 Acuity: KEN 2 ap3 Triage Assessment: 14:21 General: Appears uncomfortable, Behavior is restless. Pain: Complains of pain in right ap3 lower quadrant and left lower quadrant Pain currently is 10 out of 10 on a pain scale. Pain began this morning 0900. Neuro: Level of Consciousness is awake, alert, obeys commands, Oriented to person, place, time, situation. Cardiovascular: Patient's skin is warm and dry. Respiratory: Airway is patent Respiratory effort is even, unlabored, Respiratory pattern is regular, symmetrical. GI: Pt is actively vomiting Reports lower abdominal pain, constipation, nausea. Historical: - Allergies: 14:21 No Known Allergies; ap3 - PSHx: 14:21 back X 3; neck; Shoulder - R; ap3 - Immunization history:: Client reports receiving the 2nd dose of the Covid vaccine. - Social history:: Smoking status: Patient denies any tobacco usage or history of. Screenin:22 Abuse screen: Denies threats or abuse. Nutritional screening: No deficits noted. ap3 Tuberculosis screening: No symptoms or risk factors identified. 15:16 [facility] Risk Assessment (Adult) History of falling in the last 3 months, sg5 including since admission No falls in past 3 months (0 pts). Assessment: 15:16 General: Appears uncomfortable, Behavior is calm, cooperative, appropriate for age. sg5 Pain: Complains of pain in abdomen and left lower quadrant and right lower quadrant Pain currently is 10 out of 10 on a pain scale. Neuro: No deficits noted. Level of Consciousness is awake, alert, obeys commands, Oriented to person, place, time, situation, Appropriate for age. Cardiovascular: No deficits noted. Heart tones S1 S2 present Capillary refill < 3 seconds Rhythm is regular. Respiratory: No deficits noted. Airway is patent Trachea midline Breath sounds are clear bilaterally. GI: Bowel sounds present X 4 quads. Abd is soft Abd is non tender Reports lower abdominal pain, diarrhea, nausea, vomiting. : No deficits noted. No signs and/or symptoms were reported regarding the genitourinary system. EENT: No deficits noted. No signs and/or symptoms were reported regarding the EENT system. Derm: No deficits noted. No signs and/or symptoms reported regarding the dermatologic system. Musculoskeletal: No deficits noted. No signs and/or symptoms reported regarding the musculoskeletal system. 16:16 Reassessment: Patient appears in no apparent distress at this time. No changes from kc6 previously documented assessment. Patient and/or family updated on plan of care and expected duration. Pain level reassessed. Patient is alert, oriented x 3, equal unlabored respirations, skin warm/dry/pink. 17:16 Reassessment: Patient appears in no apparent distress at this time. No changes from kc6 previously documented assessment. Patient and/or family updated on plan of care and expected duration. Pain level reassessed. Patient is alert, oriented x 3, equal unlabored respirations, skin warm/dry/pink. 18:10 Reassessment: Patient appears in no apparent distress at this time. No changes from kc6 previously documented assessment. Patient and/or family updated on plan of care and expected duration. Pain level reassessed. Patient is alert, oriented x 3, equal unlabored respirations, skin warm/dry/pink. 19:24 General: Appears uncomfortable, Behavior is calm, cooperative. Pain: Complains of pain ha1 in abdomen Pain currently is 4 out of 10 on a pain scale. Neuro: Level of Consciousness is awake, alert, obeys commands, Oriented to person, place, time, situation. Cardiovascular: Capillary refill < 3 seconds Patient's skin is warm and dry. Rhythm is regular. Respiratory: Airway is patent Trachea midline Respiratory effort is even, unlabored, Respiratory pattern is regular, symmetrical. GI: Reports lower abdominal pain. Musculoskeletal: No deficits noted. Circulation, motion, and sensation intact. 19:54 Reassessment: Patient appears in no apparent distress at this time. Patient and/or jb4 family updated on plan of care and expected duration. Pain level reassessed. Patient is alert, oriented x 3, equal unlabored respirations, skin warm/dry/pink. Vital Signs: 14:18 BP 170 / 91; Pulse 70; Temp 99.1(TE); Pulse Ox 98% ; Weight 52.16 kg; Pain 10/10; ap3 16:26 BP 179 / 91; Pulse 67; Resp 16 S; Pulse Ox 96% on R/A; Pain 10/10; kc6 17:45 BP 170 / 92; Pulse 65; Resp 15; Pulse Ox 97% ; kc6 18:12 BP 115 / 73; Pulse 61; Resp 18 S; Pulse Ox 98% on R/A; kc6 18:44 BP 115 / 73; Pulse 62; Resp 19 S; Pulse Ox 94% on R/A; kc6 19:26 BP 112 / 74; Pulse 70; Resp 20 S; Pulse Ox 99% on R/A; ha1 14:18 Pain Scale: Adult ap3 16:26 Pain Scale: Adult kc6 ED Course: 14:08 Patient arrived in ED. am2 14:08 Virginie Marinelli MD is Private Physician. am2 14:20 Triage completed. ap3 14:22 Arm band placed on right wrist. ap3 15:09 Danny Simon, LORETO is Primary Nurse. bp 15:10 Bola Rocha PA is PHCP. cp 15:10 Leandro Joel MD is Attending Physician. cp 15:16 Patient has correct armband on for positive identification. Bed in low position. Call sg5 light in reach. Side rails up X 1. Valuables Left with patient. 15:55 Radiology exam delayed due to IV insertion attempt and/or patient not having jg10 appropriate IV at this time. 15:55 Radiology exam delayed due to lab results not completed at this time. jg10 16:10 XRAY Chest (1 view) In Process Unspecified. EDMS 16:15 Inserted saline lock: 20 gauge in right upper arm, using aseptic technique. Blood bp collected. 17:35 CT completed. Patient moved back from CT. jg10 17:36 CT Abd/Pelvis - IV Contrast Only In Process Unspecified. EDMS 19:54 No provider procedures requiring assistance completed. IV discontinued, intact, jb4 bleeding controlled, No redness/swelling at site. Pressure dressing applied. Administered Medications: 16:24 Drug: morphine IVP or IV 4 mg Route: IVP; Infused Over: 4 mins; Site: right antecubital;kc6 18:44 Follow up: Response: No adverse reaction; Pain is unchanged, physician notified; RASS: kc6 Alert and Calm (0) 16:24 Drug: Ondansetron IVP 4 mg Route: IVP; Site: right antecubital; kc6 18:45 Follow up: Response: No adverse reaction; Nausea unchanged kc6 16:24 Drug: Famotidine IVP 20 mg Route: IVP; Site: right antecubital; kc6 18:45 Follow up: Response: No adverse reaction kc6 16:24 Drug: NS 0.9% IV 500 ml Route: IV; Rate: bolus; Site: right antecubital; kc6 18:45 Follow up: Response: No adverse reaction; IV Status: Completed infusion; IV Intake: kc6 500ml 17:08 Drug: NS 0.9% IV 500 ml Route: IV; Rate: 100 ml/hr; Site: right antecubital; kc6 18:45 Follow up: Response: No adverse reaction; IV Status: Infusion continued kc6 17:08 Drug: morphine IVP or IV 4 mg Route: IVP; Infused Over: 4 mins; Site: right antecubital;kc6 18:45 Follow up: Response: No adverse reaction; Pain is decreased; RASS: Alert and Calm (0) kc6 17:08 Drug: Ondansetron IVP 4 mg Route: IVP; Site: right antecubital; kc6 18:46 Follow up: Response: No adverse reaction; Nausea is decreased kc6 19:47 Drug: Dicyclomine IM 20 mg Route: IM; Site: right gluteus; jb4 19:54 Follow up: Response: Medication administered at discharge. jb4 19:47 Drug: metoCLOPramide IVP 10 mg Route: IVP; Site: right antecubital; jb4 19:55 Follow up: Response: Medication administered at discharge. jb4 Medication: 15:16 VIS not applicable for this client. sg5 Intake: 18:45 IV: 500ml; Total: 500ml. kc6 Outcome: 19:44 Discharge ordered by MD. cp 19:54 Discharged to home ambulatory. jb4 19:54 Condition: stable 19:54 Discharge instructions given to patient, family, Instructed on discharge instructions, follow up and referral plans. medication usage, Demonstrated understanding of instructions, follow-up care, medications, Prescriptions given X 3. 19:55 Patient left the ED. jb4 Signatures: Dispatcher [employer] EDMS Bola Rocha PA PA cp Bryson, James, RN RN jb4 Brie Gomez Brian RN RN bp Brie Rodriguez RN RN ap3 Sheri Babcock RN RN corey1 Marquita Brumfield RN RN kc6 Leighann Sales jg10 Tamra Sales RN RN sg5 Corrections: (The following items were deleted from the chart) 16:16 16:16 Inserted saline lock: 20 gauge in right upper arm, using aseptic technique. Blood bp collected. bp 18:12 17:48 Reassessment: No changes from previously documented assessment. Patient and/or kc6 family updated on plan of care and expected duration. Pain level reassessed. kc6
[2022-07-12] MEDS ORDERED: METHYLPREDNISOLONE 125 MG INJ ONE (20:03)
[2022-07-12] MEDS ORDERED: hydrOXYzine HCL 25 MG TAB ONE (20:04)
[2022-07-12 20:06] VITALS: TEMP 99.1
[2022-07-12 20:11] VITALS: BP 112/74; O2SAT 99
--- NOTE | 2022-07-13 12:15 | EKG ---
Test Date: 2022-07-12 Test Time: 16:39:33 Pediatric Physical Therapy Assistant: SHANIA MEASUREMENT RESULTS: Intervals: Rate: 66 TX: 140 QRSD: 82 QT: 394 QTc: 413 Jones: P: 65 TX: 140 QRS: 76 T: 67 INTERPRETIVE STATEMENTS: Normal sinus rhythm Normal ECG No previous ECG available for comparison Electronically Signed On 07-13-22 12:13:05 CDT by Isidro Howe
== END 2022-07-12 19:55 | disposition home or self-care (01) ==
LOC: ER 14:07
DX: R11.2 Nausea with vomiting, unspecified (principal); R10.9 Unspecified abdominal pain
CPT/HCPCS: 96361; 93005; 85025; 36415; 83735; 85610; 84484; 83690; 80053; 83880; 74177; 71045; 96375; 96372; 96374; 99284; Q9967; J2930; J2405; J7040